=== PATIENT | female | born 1965 | race Caucasian/White ===

== ENCOUNTER → 2021-01-21 08:31 | Outpatient (BNVA) | payer MEDICAID, SELFPAY | PROVIDERS: Visit Provider Specialist | DX: G40.909 Epilepsy, unspecified, not intractable, without status epilepticus (principal); F17.200 Nicotine dependence, unspecified, uncomplicated | CPT/HCPCS: 99204; 99205 ==

== ENCOUNTER → 2021-02-09 13:17 | Outpatient (BNVA) | payer MEDICAID, SELFPAY | PROVIDERS: Visit Provider Specialist | DX: G40.909 Epilepsy, unspecified, not intractable, without status epilepticus (principal); F17.200 Nicotine dependence, unspecified, uncomplicated | CPT/HCPCS: 95816 ==

== ENCOUNTER 2021-02-11 14:58 | Outpatient (CLI) | payer MEDICAID, SELFPAY ==
--- NOTE | 2021-02-11 15:15 | MR_ITS ---
WS: [id number] MRI BRAIN WITHOUT CONTRAST HISTORY: R56.9 - Unspecified convulsions COMPARISON: None available. TECHNIQUE: Diffusion imaging, multiplanar T1, T2 and FLAIR imaging obtained. No evidence for acute infarct or hemorrhage. Salas-white matter differentiation is normal. Very mild scattered T2 and FLAIR signal hyperintensities in the periventricular and subcortical white matter distribution. Mild bilateral atrophy. No large territory infarct. Ventricles and extra-axial spaces are normal. Symmetric appearance to the hippocampal formations. No mesial temporal sclerosis. No cortical dysplasias are identified. No inferior displacement of cerebellar tonsils. The sella turcica and pituitary gland are unremarkabl e. Dural venous sinuses and cahto of Chow demonstrate no abnormality on this unenhanced studies. Paranasal sinuses: Clear. Mastoid air cells: Small amount of fluid LEFT mastoid air cells. Calvarium and scalp: Intact. MR/MR head wo con* [id number] IMPRESSION: 1. No acute infarct. 2. Symmetric appearance of the hippocampal formations. 3. Mild chronic small vessel ischemic type changes.
== END 2021-02-11 14:59 | disposition home or self-care (01) ==
LOC: RADSHAW 15:07
PROVIDERS: Visit Provider Specialist
DX: R56.9 Unspecified convulsions (principal)
CPT/HCPCS: 70551

== ENCOUNTER 2021-03-03 10:51 | Outpatient (CLI) | payer MEDICAID, SELFPAY ==
--- NOTE | 2021-03-03 11:04 | US_ITS ---
WS: [id number] INDICATION: Lump right axilla TECHNIQUE: Ultrasound area of concern right axilla. FINDINGS: Homogeneous well-circumscribed nodule right axilla measuring 1.0 x 0.9 x 0.7 cm with research program internship al echogenicity. This is superficial location. This most likely represents chronic inspissated sebace ous cyst. Lymph node is less likely. No internal vascularity. US/US soft tissue/extremity [id number] IMPRESSION: Homogeneous well-circumscribed nodule in the area of concern measur ing 1 cm superficial location. Differential considerations include inspissated chronic sebaceous cyst versus lymph node. Ultrasound-guided biopsy could be per formed in further evaluation.
== END 2021-03-03 10:52 | disposition home or self-care (01) ==
LOC: US 10:54
PROVIDERS: PCP Nurse Practitioner Family; Visit Provider Nurse Practitioner Family
DX: R22.31 Localized swelling, mass and lump, right upper limb (principal)
CPT/HCPCS: 76882

== ENCOUNTER → 2021-04-15 08:26 | Outpatient (BNVA) | payer MEDICAID, SELFPAY | PROVIDERS: PCP Nurse Practitioner Family; Visit Provider Specialist | DX: G40.909 Epilepsy, unspecified, not intractable, without status epilepticus (principal); F17.210 Nicotine dependence, cigarettes, uncomplicated | CPT/HCPCS: 99214 ==

== ENCOUNTER 2021-04-28 10:29 | Outpatient (CLI) | payer MEDICAID, SELFPAY ==
--- NOTE | 2021-04-28 10:33 | CT_ITS ---
WS: [id number] CT CHEST WITHOUT INTRAVENOUS CONTRAST HISTORY: CHRONIC OBSTRUCTIVE PULMONARY DISEASE TECHNIQUE: Contiguous 5 mm axial imaging performed on the thorax. Coronal and sagittal reformats are submitted. All CT scans at [facility] use at least one of these dose optimization techniques: automated exposure control; mA and/or kV adjustment per patient size (includes targeted exams where dose is matched to clinical indication); or iterative reconstruction. CONTRAST: None DLP: 724.81 mGy-cm. COMPARISON: None available. Lungs and central airway: Markedly abnormal appearance of the lungs. Lungs are heterogeneous with are as of mixed density. There are groundglass changes bilaterally and also more lucent areas throughout both lungs. There is a pleural-based irregular mass in the LEFT lower lobe extending over length of 4 .1 cm x 1.7 x 2.9 cm. Margins are irregular and there is adjacent pleural thickening. Pleura: Mild bilateral pleural thickening, greatest in the LEFT lower thorax. Heart and pericardium: Moderately enlarged heart chambers. No effusion. Mediastinum and giuseppe: There are a few small mediastinal and hilar lymph nodes. Some of these lymph no micaela maintain their fatty hilum. Periaortic lymph node measures 9 mm. Lymph nodes in the hilar regions would be difficult to evaluate without IV contrast. Vessels: Mildly dilated pulmonary artery. Mild atherosclerosis aorta. Chest wall and lower neck: No soft tissue masses. Upper abdomen: Prior cholecystectomy. 1.5 cm nodule associated with the LEFT adrenal gland with negat janeth Hounsfield units. Very mild thickening of the RIGHT adrenal gland. Visualized liver is normal. Osseous structures: Mild anterior wedging T6 by 20% without retropulsion. Mild sclerosis along the hartley perior endplate of T9 with a Schmorl's node. No retropulsion. CT/CT chest wo con [id number] IMPRESSION: 1. Irregular pleural-based soft tissue mass LEFT lower lobe measures 4.1 x 1.7 x 2.9 cm. Differential includes pneumonia, infarct and pulmonary neoplasm. Rec ommend short-term follow-up after treatment for possible pneumonia. Follow-up c hest CT in 3 weeks recommended. 2. Heterogeneous changes throughout both lungs. Probably related to emphysema with areas of air trapping and fibrosis. 3. LEFT adrenal adenoma. 4. Pulmonary hypertension. 5. Mild cardiomegaly.
== END 2021-04-28 10:30 | disposition home or self-care (01) ==
PROVIDERS: PCP Nurse Practitioner Family; Visit Provider Family Medicine
DX: J44.9 Chronic obstructive pulmonary disease, unspecified (principal); I51.7 Cardiomegaly; I27.20 Pulmonary hypertension, unspecified; D35.02 Benign neoplasm of left adrenal gland; R91.8 Other nonspecific abnormal finding of lung field
CPT/HCPCS: 71250

== ENCOUNTER → 2021-06-04 09:20 | Outpatient (BNVA) | payer MEDICAID, SELFPAY | PROVIDERS: PCP Nurse Practitioner Family; Visit Provider Family Medicine | DX: Z01.812 Encounter for preprocedural laboratory examination (principal) | CPT/HCPCS: 87635 ==

== ENCOUNTER 2021-06-10 09:49 | Outpatient (CLI) | payer MEDICAID, SELFPAY ==
--- NOTE | 2021-06-10 12:12 | PFTS_ITS ---
Date of Study:06/10/21 Date of Dictation: 06/12/21 MECHANICS: Postbronchodilator forced vital capacity (FVC) is reduced . Postbronchodilator forced expiratory volume in one second (FEV1) is severely reduced 46% FEV1/FVC is normal. There is no significant response to bronchodilators. FLOW VOLUME LOOP: normal. LUNG VOLUMES: Not measured DIFFUSING CAPACITY FOR CARBON MONOXIDE: Not measured . INTERPRETATION: The spirometry shows restrictive pattern. Lung volumes and gas transfer not measured. Clinical correlation recommended. [facility]
== END 2021-06-10 09:50 | disposition home or self-care (01) ==
LOC: RT 09:50
PROVIDERS: PCP Nurse Practitioner Family; Visit Provider Family Medicine
DX: J44.9 Chronic obstructive pulmonary disease, unspecified (principal)
CPT/HCPCS: 94060; J7611

== ENCOUNTER 2021-06-22 13:19 | Outpatient (CLI) | payer MEDICAID, SELFPAY ==
--- NOTE | 2021-06-22 | CT_ITS ---
WS: [id number] CT scan of the chest without IV contrast, additional two-dimensional coronal and sagittal reconstruct ion was performed. 06/22/2021 Clinical Data: ABNORMAL CHEST CT Comparison: CT chest, 04/28/2021 DLP: 786.[address] scans at [facility] use at least one of these dose optimization techniques: automated e xposure control; mA and/or kV adjustment per patient size (includes targeted exams where dose is matc hed to clinical indication); or iterative reconstruction. Findings: The 4.1 cm left lower lobe pleural-based mass is not changed in size or configuration. There is assoc iated left pleural thickening. The diffuse groundglass opacity throughout both lungs remains the same .. No effusions are seen. The heart size is enlarged with no pericardial effusion. No pneumothorax is se en. The trachea bifurcates normally into the bronchi. The pulmonary arterial system and thoracic aort a demonstrate no abnormalities or dilatations. There is no axillary or significant mediastinal adenop athy. The upper abdomen shows no change. CT/CT chest wo con [id number] Impression: 1. Pleural-based left lower lobe soft tissue mass unchanged. 2. No change in bilateral groundglass pulmonary opacities. 3. Differential diagnosis remains chronic pneumonia, pleural based carcinoma, c hronic inflammatory reaction and reaction to drugs or medication.
== END 2021-06-22 13:20 | disposition home or self-care (01) ==
PROVIDERS: PCP Nurse Practitioner Family; Visit Provider Nurse Practitioner Family
DX: R93.89 Abnormal findings on diagnostic imaging of other specified body structures (principal); J18.9 Pneumonia, unspecified organism
CPT/HCPCS: 71250

== ENCOUNTER 2021-12-21 20:00 | Outpatient (CLI) | payer MEDICAID, SELFPAY | END 2021-12-21 20:01 | disposition home or self-care (01) | LOC: SLEEP 12-22 06:39 | PROVIDERS: PCP Nurse Practitioner Family; Visit Provider Nurse Practitioner Family | DX: G47.33 Obstructive sleep apnea (adult) (pediatric) (principal) | CPT/HCPCS: 95810 ==

== ENCOUNTER → 2022-04-28 14:11 | Outpatient (BNVA) | payer MEDICAID, SELFPAY | PROVIDERS: PCP Family Medicine; Visit Provider Family Medicine | DX: R05.9 Cough, unspecified (principal); J44.1 Chronic obstructive pulmonary disease with (acute) exacerbation | CPT/HCPCS: 87426 ==

== ENCOUNTER 2022-05-17 06:52 | Outpatient (CLI) | payer MEDICAID, SELFPAY ==
--- NOTE | 2022-05-17 07:30 | CT_ITS ---
WS: [id number] CT CHEST WITHOUT INTRAVENOUS CONTRAST HISTORY: R91.8 - Other nonspecific abnormal finding of lung field TECHNIQUE: Contiguous 5 mm axial imaging performed on the thorax. Coronal and sagittal reformats are submitted. All CT scans at [facility] use at least one of these dose optimization techniques: automated exposure control; mA and/or kV adjustment per patient size (includes targeted exams where dose is matched to clinical indication); or iterative reconstruction. CONTRAST: None DLP: 579.83 mGy.cm COMPARISON: 06/22/2021, 04/28/2021. Prior PET/CT 07/18/2021 Lungs and central airway: Lung volumes are mildly reduced. Again noted is extensive groundglass opaci fication and increased heterogeneity with areas of lucent lung scattered throughout. Spiculated area of consolidation is again identified in the posterior LEFT lower lobe. Consolidation measures 2.8 x 2 .7 cm and abuts the pleura. There is adjacent pleural thickening and reaction. No effusion. No obviou s progression but also no improvement. This area was negative on a prior PET/CT. Pleura: Bilateral mild pleural thickening. Heart and pericardium: Mild cardiomegaly. Mediastinum and giuseppe: Numerous mediastinal and hilar lymph nodes are reidentified. Lymph nodes mainta in their normal fatty giuseppe and normal ovoid shape. Probably reactive. Limited visualization of the me diastinum for change without IV contrast. Vessels: Atherosclerosis aorta. Mild enlargement of the pulmonary artery. Chest wall and lower neck: 1.5 cm subcutaneous soft tissue mass anterior to the RIGHT shoulder is pro bably a sebaceous cyst. Upper abdomen: Prior cholecystectomy. Bilateral adrenal thickening and nodularity unchanged. Prominen t diaphragmatic slip at the RIGHT lateral surface of the liver similar to prior studies. Osseous structures: Mild increase in thoracic kyphosis. Mild anterior wedging of T6. CT/CT chest wo con [id number] IMPRESSION: 1. PET/CT negative spiculated pleural-based mass in the LEFT lower lobe has no t significantly changed. No significant progression or increase since 1. 2. Continued mosaic attenuation throughout both lungs with areas of air trappi ng. Differential and occludes asthma, bronchiolitis obliterans of hypersensitiv ity pneumonia and chronic PE. No change. 3. No obvious progression of disease.
== END 2022-05-17 06:53 | disposition home or self-care (01) ==
LOC: RAD 06:53
PROVIDERS: PCP Family Medicine; Visit Provider Family Medicine
DX: R91.8 Other nonspecific abnormal finding of lung field (principal)
CPT/HCPCS: 71250

== ENCOUNTER → 2022-08-31 12:27 | Outpatient (BNVA) | payer MEDICAID, SELFPAY | PROVIDERS: PCP Family Medicine; Visit Provider Family Medicine | DX: I10 Essential (primary) hypertension (principal); E78.2 Mixed hyperlipidemia; J44.9 Chronic obstructive pulmonary disease, unspecified; L02.91 Cutaneous abscess, unspecified; G47.00 Insomnia, unspecified; R32 Unspecified urinary incontinence | CPT/HCPCS: 80053; 80061; 84443; 85025 ==

== ENCOUNTER 2022-09-22 11:29 | Inpatient (IN) | payer MEDICAID, SELFPAY ==
[2022-09-22] VITALS (14 sets, daily range): BP systolic 99–119; BP diastolic 57–79; PULSE 61–85; RESP 16–23; TEMP 36.7–36.9; O2SAT 90–94; BMI 27.8
--- NOTE | 2022-09-22 11:36 | XR_ITS ---
WS: [id number] Exam: XR chest 1V portable [id number] Date/Time of Exam: 09/22/2022 11:42 AM Reason For Exam: dyspnea/cough No previous exams. Compared to chest CT scan performed 05/17/2022. Patchy groundglass infiltrates seen in the mid and lower lung zones bilaterally most likely represent chronic change as seen on the prior CT. There is also a small air collection between the parietal an d visceral pleura along the lower lobe of the right lung. A tiny pneumothorax is not excluded but thi s is probably a pleural-based emphysematous bleb also noted on prior CT. Pleural thickening at [facility] costophrenic angle. Heart size is top limits normal. The mediastinum is normal in contour. Ground glass densities in the upper lung zones likely chronic. Bony structures are intact. Recommendations: Serial follow-up chest radiographs suggested to detect any change. XR/XR chest 1V portable [id number] IMPRESSION: 1. Groundglass opacities seen throughout both lungs most likely chronic in natu re. 2. Small air collection between the parietal and visceral pleura of the right l ower lobe. Tiny pneumothorax is not excluded but this is more than likely a sma ll pleural-based emphysematous bleb which can be seen on prior CT scan of the c hest.
[2022-09-22 12:07] LABS: Basophils % 0.3 %; Eosinophils % 0.6 %; Hematocrit 31.1 % (37.0-47.0); Lymphocytes # 1.1 10^3/uL (0.8-4.8); Lymphocytes % 17.2 %; Mean Corpuscular HGB Conc 28.9 g/dL (30.0-36.0); Mean Corpuscular Volume 79.5 fl (81-99); Mean Platelet Volume 9.9 fL (7.4-10.4); Monocytes # 0.5 10^3/uL (0.2-0.9); Monocytes % 7.1 %; Neutrophils % 74.5 %; Nucleated Red Blood Cells % 0 %; Platelet Count 287 10^3/cmm (130-400); Red Blood Count 3.91 10^6/uL (4.1-5.3); Red Cell Distribution Width 21.7 % (12.1-15.1); White Blood Count 6.6 10^3/uL (4.0-10.0)
--- NOTE | 2022-09-22 12:14 | W.ED.SOB ---
HPI - SOB/Dyspnea General: Chief Complaint: Shortness of Breath/Dyspnea Stated Complaint: RESPIRATORY DISTRESS Time Seen by Provider: 09/22/22 11:35 Source: patient Mode of arrival: EMS History of Present Illness: HPI Narrative: 57-year-old female with history of seizure events to the emergency room via EMS with increasing productive cough with some blood-streaked sputum and increasing shortness of breath several neurogenic syncopal episodes recently. Patient was cyanotic at home with an O2 sat in the 70s on room air she normally wears 2 L by nasal cannula. She denies any chest pain. Despite being on chronic oxygen she continue to smoke regularly. MD elicited complaint: shortness of breath and cough Pertinent past history: COPD Onset (ago): day(s) Timing: constant and progressively worsening Severity: moderate Exacerbating factors: exertion and coughing Relieving factors: oxygen, rest and bronchodilators Known history of: COPD Associated symptoms: Reports chest congestion, cough and dizziness; Deny abdominal pain, chest pain, diaphoresis, extremity pain, fever(s), hemoptysis, lightheadedness, myalgias, nausea, orthopnea, palpitations, paresthesias, polydipsia, polyuria, rash, sense of impending doom, syncope or vomiting Treatment prior to arrival: oxygen and bronchodilator Review of Systems Const: Reports: fatigue and malaise; Denies: fever(s), chills or diaphoresis ENMT: Denies: throat pain, ear or mastoid pain, nasal discharge or nasal congestion Card: Denies: chest pain, palpitations, lightheadedness, syncope or orthopnea Resp: Reports: dyspnea, productive cough, wheezing and chest congestion; Denies: hemoptysis GI: Denies: abdominal pain, nausea or vomiting : Denies: flank pain, difficulty voiding, dysuria, urinary frequency or urinary urgency Musc: Denies: extremity pain or extremity swelling Skin/Breast: Denies: rash or pruritus Neuro: Reports: dizziness Endo: Denies: polyuria or polydipsia PFS ED PFSH: Medical History Abscess Allergic rhinitis Chronic obstructive pulmonary disease Cough Essential hypertension Hyperlipemia, mixed Insomnia PVT (portal vein thrombosis) Sleep apnea Urine incontinence Surgical History History of cholecystectomy History of tubal ligation Hx of breast reduction, elective Family History Grandmother CAD (coronary artery disease) Cancer Diabetes Mother Cancer Brother Cancer Sister Cancer Denies family history of Hypertension Stroke Social History Smoking and tobacco status: current every day smoker cigarettes Packs smoked per day: 0.5 Years cigarettes smoked: 50 Second hand smoke exposure: No Smoking risk assessment/counseling performed?: Yes Alcohol intake: former Year of sobriety/quit date alcohol: 30 y Desire information about alcohol rehabilitation?: No Counseling given: No Desire information about substance/drug rehabilitation?: No Counseling given: No Adopted: No Caregiver/support person: No Lives independently: No Household members: caregiver Housing: House Marital status: Number of children: 1 service: No Current occupational status: unemployed Pets and animals: No Current gender identity: Female Physical Exam Const: GENERAL APPEARANCE: cooperative and comfortable ORIENTATION/CONSCIOUSNESS: Yes awake, Yes oriented to person, Yes oriented to place and Yes oriented to time HENMT: COMMON NORMALS: normocephalic, atraumatic and hearing grossly normal bilaterally HEAD & SCALP: normocephalic and atraumatic Resp: EFFORT & INSPECTION: Yes tachypneic AUSCULTATION: rhonchi and wheezes Cardio: COMMON NORMALS: regular rate, regular rhythm and No murmurs present (Cardio) RATE: regular rate RHYTHM: regular rhythm GI: COMMON NORMALS: Soft to palpation and No hepatosplenomegaly present AUSCULTATION: Yes normoactive bowel sounds PALPATION: Yes Soft to palpation, No Tenderness to palpation present (GI), No Guarding due to palpation present (GI) and Yes No hepatosplenomegaly present Extremity: COMMON NORMALS: normal to inspection, capillary refill normal, no clubbing, cyanosis or edema, no calf tenderness and no pedal edema Neuro: SENSORIUM/ORIENTATION: Yes oriented to person, Yes oriented to place and Yes oriented to time Skin: COMMON NORMALS: no rashes or lesions noted GENERAL SKIN EXAM: no rashes or lesions noted Course Vital Signs: Vital signs: Vital Signs Temperature 98.4 F 09/22/22 11:33 Pulse Rate 81 09/22/22 14:30 Respiratory Rate 16 09/22/22 14:30 Blood Pressure 106/57 09/22/22 14:30 Pulse Oximetry 94 09/22/22 14:30 Oxygen Delivery Me thod 09/22/22 13:30 Oxygen Flow Rate 5 09/22/22 13:30 MDM - SOB/Dyspnea Medical Decision Making Patient has acute exacerbation of COPD with what appears to be a pneumonia as well as started on antibiotics. She has a left lower lung mass that is increased in size had previously been worked up as negative by PET scan. Radiology recommends to be reevaluated. Admit IV antibiotics ceftriaxone and Zithromax will also need steroids aggressive pulmonary toilet. Finally she is mildly anemic which will need to be watched closely. Discussed with hospitalist orders written Medical Records I reviewed the patient's medical records. Lab Data I reviewed the patient's lab results. 09/22/22 11:48 09/22/22 11:48 Labs/Radiology: Radiology Impressions Chest X-Ray 09/22/22 11:36 IMPRESSION: 1. Groundglass opacities seen throughout both lungs most likely chronic in nature. 2. Small air collection between the parietal and visceral pleura of the right lower lobe. Tiny pneumothorax is not excluded but this is more than likely a small pleural-based emphysematous bleb which can be seen on prior CT scan of the chest. Chest CTA 09/22/22 12:39 IMPRESSION: 1. No evidence of pulmonary embolus. 2. Diffuse hazy ground glass infiltrates throughout both lungs with mosaic attenuation with air trapping. This is unchanged from previous. 3. No pneumothorax. 4. Irregular LEFT lower lobe pleural-based opacity measuring 2.6 x 4.5 cm progressed slightly compared to previous. Consider interval follow-up with PET/CT. 5. New compression fracture L1 described above with loss of approximately 25-30% vertebral body height. Mild retropulsion with narrowing of the LEFT subarticular recess. 6. New mild compression superior endplate T4 with sclerosis Attempted notification Barry Bautista DO at 09/22/2022 1:59 PM. Laboratory Results WBC 6.6 10^3/uL (4.0-10.0) 09/22/22 11:48 RBC 3.91 10^6/uL (4.1-5.3) L 09/22/22 11:48 Hgb 9.0 g/dL (11.5-15.3) L 09/22/22 11:48 Hct 31.1 % (37.0-47.0) L 09/22/22 11:48 MCV 79.5 fl (81-99) L 09/22/22 11:48 MCH 23.0 pg (28.0-34.0) L 09/22/22 11:48 MCHC 28.9 g/dL (30.0-36.0) L 09/22/22 11:48 RDW 21.7 % (12.1-15.1) H 09/22/22 11:48 Plt Count 287 10^3/cmm (130-400) 09/22/22 11:48 MPV 9.9 fL (7.4-10.4) 09/22/22 11:48 Neut % (Auto) 74.5 % 09/22/22 11:48 Lymph % (Auto) 17.2 % 09/22/22 11:48 [place] % (Auto) 7.1 % 09/22/22 11:48 Eos % (Auto) 0.6 % 09/22/22 11:48 Baso % (Auto) 0.3 % 09/22/22 11:48 Neut # (Auto) 4.90 10^3/uL (1.8-7.7) 09/22/22 11:48 Lymph # (Auto) 1.1 10^3/uL (0.8-4.8) 09/22/22 11:48 [place] # (Auto) 0.5 10^3/uL (0.2-0.9) 09/22/22 11:48 Eos # (Auto) 0.0 10^3/uL (0.0-0.8) 09/22/22 11:48 Baso # (Auto) 0.0 10^3/uL (0.0-0.1) 09/22/22 11:48 Nucleated RBC % (auto) 0 % 09/22/22 11:48 Nucleated RBCs # 0.0 /100WBC 09/22/22 11:48 Specimen Type Arterial 09/22/22 12:30 Sample Site Radial, left 09/22/22 12:30 ABG pH 7.39 (7.35-7.45) 09/22/22 12:30 ABG pCO2 36.2 mmHg (35-45) 09/22/22 12:30 ABG pO2 56.0 mmHg (80.0-100.0) L 09/22/22 12:30 ABG HCO3 21.7 mmol/L (22-26) L 09/22/22 12:30 ABG O2 Saturation 89.1 09/22/22 12:30 ABG Base Excess -3.0 mmol/L (-2.0-2.0) L 09/22/22 12:30 Jarett Test Pos 09/22/22 12:30 A-a O2 Gradient 6.5 mmHg (5-10) 09/22/22 12:30 Hematocrit 28.0 % (37-47) L 09/22/22 12:30 Hgb O2 Saturation 84.3 % (95-100) L 09/22/22 12:30 Carboxyhemoglobin 4.7 %THgb (0.4-20.1) 09/22/22 12:30 Methemoglobin 0.7 % (0.4-1.5) 09/22/22 12:30 Total Hemoglobin 9.1 g/dL (12-16) L 09/22/22 12:30 Sodium 135.0 mmol/L (131-143) 09/22/22 12:30 Potassium 4.4 mmol/L (3.5-5.0) 09/22/22 12:30 Glucose 115.0 mg/dL (70-115) 09/22/22 12:30 Ionized Calcium 1.2 mmol/L (1.1-1.4) 09/22/22 12:30 O2 Delivery Device Nc 09/22/22 12:30 O2 Liters/Min 5.0 % 09/22/22 12:30 Carpet Installer Helper ID [place] 09/22/22 12:30 Sodium 136 mmol/L (136-145) 09/22/22 11:48 Potassium 4.9 mmol/L (3.5-5.1) 09/22/22 11:48 Chloride 105 mmol/L (98-107) 09/22/22 11:48 Carbon Dioxide 21 mmol/L (22-29) L 09/22/22 11:48 Anion Gap 14.9 (5-19) 09/22/22 11:48 BUN 15 mg/dL (6-20) 09/22/22 11:48 Creatinine 1.4 mg/dL (0.5-0.9) H 09/22/22 11:48 GFR Calculation 38.5 mL/min (90-130) L 09/22/22 11:48 Glucose 95 mg/dL (65-115) 09/22/22 11:48 Calculated Osmolality 283 mOsm/kg (285-295) L 09/22/22 11:48 Lactic Acid 1.7 mmol/L (0.5-2.2) 09/22/22 12:40 Calcium 8.2 mg/dL (8.5-10.5) L 09/22/22 11:48 Total Bilirubin 0.5 mg/dL (0.15-1.2) 09/22/22 11:48 AST 13 U/L (0-32) 09/22/22 11:48 ALT 8 U/L (0-33) 09/22/22 11:48 Alkaline Phosphatase 86 U/L (35-105) 09/22/22 11:48 Troponin T Baseline 17 ng/L (0-10) H 09/22/22 11:48 Troponin T 120 Minute 14.00 ng/L (0-10) H 09/22/22 14:02 Delta Troponin T -3.00 ABS# (0-10) L 09/22/22 14:02 NT-Pro-B Natriuret Pep 03674 pg/mL (0-125) H 09/22/22 12:40 Total Protein 6.5 g/dL (6.6-8.7) L 09/22/22 11:48 Albumin 3.1 g/dL (3.5-5.2) L 09/22/22 11:48 Globulin 3.4 g/dL (1.3-4.6) 09/22/22 11:48 Urine Color Yellow (Yellow) 09/22/22 14:37 Urine Appearance Clear (CLEAR) 09/22/22 14:37 Urine pH 5 (5-7) 09/22/22 14:37 Ur Specific Evans 1.015 (1.005-1.030) 09/22/22 14:37 Urine Protein Neg (Negative) 09/22/22 14:37 Urine Glucose (UA) Norm (Normal) 09/22/22 14:37 Urine Ketones Negative (Negative) 09/22/22 14:37 Urine Blood Neg (Negative) 09/22/22 14:37 Urine Nitrate Negative (Negative) 09/22/22 14:37 Urine Bilirubin Neg (Negative) 09/22/22 14:37 Urine Urobilinogen 1 mg/dL (Negative) H 09/22/22 14:37 Ur Leukocyte Esterase Negative (Negative) 09/22/22 14:37 Discharge Plan Discharge Patient Disposition: Admitted As Inpatient Admit Provider: Natalia Farrell Clinical Impression: Pneumonia, COPD exacerbation, Syncope, Lung mass Condition: Stable Coding Level of Care Code ED Automatic 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
--- NOTE | 2022-09-22 12:26 | ECG_ITS ---
[facility] Test Date: 2022-09-22 Pat Name: Asia Porras Department: Room: Gender: Female Hris Specialist: : [id number] Requested By: Barry Dumont Order Number: [id number] Shaun MD: Porfirio Gay M.D. Measurements Intervals [place] Rate: 66 P: 30 TX: 186 QRS: 43 QRSD: 78 T: -38 QT: 430 QTc: 452 Interpretive Statements SINUS RHYTHM INDETERMINATE AXIS PATTERN CONSISTENT WITH PULMONARY DISEASE ST DEVIATION AND MODERATE T-WAVE ABNORMALITY, CONSIDER ANTEROLATERAL ISCHEMIA [-0.1+ mV T-WAVE IN V3-V6] ST DEVIATION AND MODERATE T-WAVE ABNORMALITY, CONSIDER INFERIOR ISCHEMIA [-0.1+ mV T-WAVE IN II/aVF] No previous ECG available for comparison Electronically Signed On 09-22-2022 23:53:28 CDT by Porfirio Gay M.D. [email or web address]
--- NOTE | 2022-09-22 12:26 | PC.NURSE ---
PT PLACED ON CONTINUOUS NIBP, SPO2, AND CM
[2022-09-22] MEDS: sodium chloride 0.9% 1,000 ML 999 ML IV (12:27)
[2022-09-22 12:36] LABS: Troponin(5th) Baseline 17 ng/L (0-10)
[2022-09-22 12:39] LABS: Alanine Aminotransferase 8 U/L (0-33); Albumin Level 3.1 g/dL (3.5-5.2); Alkaline Phosphatase 86 U/L (35-105); Anion Gap 14.9 (5-19); Aspartate Amino Transferase 13 U/L (0-32); Blood Urea Nitrogen 15 mg/dL (6-20); Calcium 8.2 mg/dL (8.5-10.5); Carbon Dioxide 21 mmol/L (22-29); Chloride 105 mmol/L (98-107); Globulin 3.4 g/dL (1.3-4.6); Glomerular Filtration Rate 38.5 mL/min (90-130); Glucose 95 mg/dL (65-115); Osmolality Calculated 283 mOsm/kg (285-295); Potassium 4.9 mmol/L (3.5-5.1); Sodium 136 mmol/L (136-145); Total Bilirubin 0.5 mg/dL (0.15-1.2); Total Protein 6.5 g/dL (6.6-8.7)
--- NOTE | 2022-09-22 12:39 | CT_ITS ---
WS: [id number] CTA OF THE CHEST WITH PULMONARY EMBOLISM PROTOCOL TECHNIQUE: High-resolution contrast enhanced CTA of the chest with coronal and sagittal reformatted i mages with pulmonary embolism protocol. MIP images are also reviewed. CLINICAL INFORMATION: small pneumothorax, infitrates COMPARISON: May 17, 2022 DLP: 378.[address] scans at [facility] use at least one of these dose optimization techniques: automated e xposure control; mA and/or kV adjustment per patient size (includes targeted exams where dose is matc hed to clinical indication); or iterative reconstruction. FINDINGS: No pneumothorax. Bilateral diffuse groundglass infiltrates throughout both lungs with mosaic attenuat ion. Area of irregular pleural-based consolidation LEFT lower lobe measuring 6.0 x 2.8 cm. Reactive A P window anterior mediastinal peribronchial lymph nodes. Normal caliber thoracic aorta. Normal calibe r descending thoracic aorta. Small bilateral adrenal adenomas. Cholecystectomy clips. Celiac and SMA are patent in the upper abdomen. Small esophageal hiatal hernia. No axillary lymphadenopathy. Proximal main pulmonary arteries are normal. Normal segmental and subseg mental pulmonary arteries. No evidence of pulmonary embolus. Mild thoracic curve. Mild thoracic kypho sis. Prior cholecystectomy. New compression fracture superior endplate L1 with mild retropulsion posterior superior cortex. This is new since May 17, 2022. Slight effacement of ventral thecal sac. Loss of approximately 25-30% vertebral body height. Chronic compression T9 and T6 are unchanged in appearance. New mild compressi on superior endplate T4 with sclerosis CT/CT angio chest PE protcl [id number] IMPRESSION: 1. No evidence of pulmonary embolus. 2. Diffuse hazy ground glass infiltrates throughout both lungs with mosaic att enuation with air trapping. This is unchanged from previous. 3. No pneumothorax. 4. Irregular LEFT lower lobe pleural-based opacity measuring 2.6 x 4.5 cm prog ressed slightly compared to previous. Consider interval follow-up with PET/CT. 5. New compression fracture L1 described above with loss of approximately 25-3 0% vertebral body height. Mild retropulsion with narrowing of the LEFT subartic ular recess. 6. New mild compression superior endplate T4 with sclerosis Attempted notification Barry Bautista DO at 09/22/2022 1:59 PM.
[2022-09-22 12:41] LABS: ABG PCO2 36.2 mmHg (35-45); ABG PH Result 7.39 (7.35-7.45); Alveolar-Arterial Oxygen Gradi 6.5 mmHg (5-10); Blood Gas Allen Test Pos; Blood Gas Operator Identificat WALCI; Blood Gas Sample Site Radial, left; Blood Gas Sample Type Arterial; Carboxyhemoglobin 4.7 %THgb (0.4-20.1); HCO3 ABG 21.7 mmol/L (22-26); HGB O2 Sat 84.3 % (95-100); Ionized Calcium Level - ABG 1.2 mmol/L (1.1-1.4); Methemoglobin 0.7 % (0.4-1.5); Oxygen Device NC; Oxygen Saturation ABG 89.1; Potassium Level - ABG 4.4 mmol/L (3.5-5.0); Total Hemoglobin 9.1 g/dL (12-16)
[2022-09-22] MEDS: ipratropium-albuterol 3 mL Neb INHALATION (12:45)
[2022-09-22] MEDS: diphenhydrAMINE 50 mg/mL SDV 1mL IVP (12:52)
--- NOTE | 2022-09-22 12:56 | PC.NURSE ---
HOLDING ANTIBIOTICS UNTIL BLOOD CULTURES OBTAINED AND CT DONE.
[2022-09-22] MEDS: iohexol 350 mg/mL 500 mL Btl (per mL) IV (13:11)
[2022-09-22] MEDS: cefTRIAXone 1,000 MG in sodium chloride 0.9% (plus) 50 ML 100 MG IV (13:21)
[2022-09-22 13:29] LABS: Lactic Sepsis W/Reflex 1.7 mmol/L (0.5-2.2)
[2022-09-22 13:38] LABS: NT Pro B Type Natriuretic Pept 10444 pg/mL (0-125)
[2022-09-22] MEDS: azithromycin 500 MG in sodium chloride 0.9% 250 ML 250 MG IV (13:46)
[2022-09-22 14:51] LABS: Add Urine Microscopic? NO; Charge for UA Resulting for Rev
[2022-09-22 14:54] LABS: Bilirubin Urine Neg (Negative); Blood Urine Neg (Negative); Glucose Urine UA Norm (Normal); Ketones Urine Negative (Negative); Leukocyte Esterase Urine Negative (Negative); Nitrate Urine Negative (Negative); Protein Urine Neg (Negative); Specific Gravity, Urine 1.015 (1.005-1.030); Urine Appearance Clear (CLEAR); Urine Color Yellow (Yellow); Urobilinogen Urine 1 mg/dL (Negative); pH Urine 5 (5-7)
--- NOTE | 2022-09-22 14:55 | ECG_ITS ---
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 Measurements Intervals [place] Rate: 76 P: 57 DC: 183 QRS: 95 QRSD: 88 T: -41 QT: 444 QTc: 501 Interpretive Statements SINUS RHYTHM BORDERLINE RIGHT AXIS DEVIATION [QRS AXIS > 90] PATTERN CONSISTENT WITH PULMONARY DISEASE ST DEVIATION AND MARKED T-WAVE ABNORMALITY, CONSIDER ANTEROLATERAL ISCHEMIA [-0.5+ mV T-WAVE IN I/aVL/V3-V6] ST DEVIATION AND MODERATE T-WAVE ABNORMALITY, CONSIDER INFERIOR ISCHEMIA [-0.1+ mV T-WAVE IN II/aVF] Compared to ECG 09/22/2022 12:26:49 Indeterminate axis no longer present T-wave abnormality still present Possible ischemia still present Electronically Signed On 09-23-2022 0:00:34 CDT by Porfirio Gay M.D. [email or web address].[employer] [facility].[employer]/store/[id number]
--- NOTE | 2022-09-22 15:22 | PM.HP ---
Providers/Chief Complaint Admitting Physician: Natalia Farrell MD Primary Care Provider: Susan Sanabria MD Chief Complaint: RESPIRATORY DISTRESS History of Present Illness Asia Porras is a 57 year old female who carries history of lung cancer, patient has opted not to get treatment for her lung cancer, patient is stating that she does not use oxygen at all at home, presented with chief complaint of recurrent syncopal events. Patient is stating that since last Tuesday she has experienced syncopal event at least 3-4 times and her last event was this morning that prompted her visit to the ER. She is living with her niece who is 40 years old, she is not willing to go for radio or medical therapy for her cancer, she has not experienced any chest pain, fever, diarrhea nausea or vomiting. She is describing a syncopal events every time she tries to get up she gets dizzy and falls. Clinically she is dry She has been started on IV fluids Hemodynamically stable Requested orthostatics Troponin without significant delta BNP is high Vitamin B12 is low as well She does not carry any signs of cauda equina TSH normal CT showing multiple compression fractures Worsening of left lower lobe opacity Review of Systems Const: Denies: fever(s) Eyes: Denies: change in vision ENMT: Denies: throat pain Card: Denies: chest pain Resp: Reports: dyspnea GI: Denies: abdominal pain : Denies: flank pain Musc: Denies: neck pain Skin/Breast: Denies: rash Neuro: Denies: headache(s) Psych: Reports: anxiety Endo: Denies: polyuria Medications/Allergies Home Medications Medication Instructions Recorded Confirmed Last Taken Type budesonide-formoterol HFA 160 2 puff inhalation BID #10.2 grams 08/31/22 09/22/22 Unknown Rx mcg-4.5 mcg/actuation aerosol inhaler (Symbicort) mupirocin 2 % topical ointment 1 applic topical BID #22 grams 08/31/22 09/22/22 Unknown Rx oxybutynin chloride 10 mg 10 mg PO DAILY #30 tabs 08/31/22 09/22/22 09/21/22 Rx tablet,extended release 24 hr tizanidine 2 mg tablet See Rx Instructions .Route 08/31/22 09/22/22 09/22/22 Rx .COMPLEX #90 tabs albuterol sulfate 90 mcg/actuation 2 puff inhalation Q6H PRN 09/22/22 09/22/22 Unknown History aerosol inhaler shortness of breath or wheezing atenolol 50 mg tablet 50 mg PO QAM 09/22/22 09/22/22 09/22/22 History citalopram 20 mg tablet 20 mg PO DAILY 09/22/22 09/22/22 09/21/22 History eszopiclone 3 mg tablet 3 mg PO BEDTIME 09/22/22 09/22/22 09/21/22 History gabapentin 300 mg capsule 300 mg PO TID 09/22/22 09/22/22 09/22/22 History montelukast 10 mg tablet 10 mg PO QPM 09/22/22 09/22/22 09/21/22 History nitroglycerin 0.4 mg sublingual 0.4 mg sublingual Q5M PRN Chest 09/22/22 09/22/22 Unknown History tablet (Nitrostat) Pain pravastatin 80 mg tablet 80 mg PO BEDTIME 09/22/22 09/22/22 09/21/22 History rivaroxaban 20 mg tablet (Xarelto) 20 mg PO QPM 09/22/22 09/22/22 09/21/22 History Allergies Allergy/AdvReac Type Severity Reaction Status Date / Time Sulfa (Sulfonamide Allergy Mild Unknown Verified 09/22/22 12:00 Antibiotics) Iodinated Contrast Media Allergy ADR-Itching Verified 09/22/22 12:00 PFSH Acute PFSH: Medical History Abscess Allergic rhinitis Chronic obstructive pulmonary disease Cough Essential hypertension Hyperlipemia, mixed Insomnia PVT (portal vein thrombosis) Sleep apnea Urine incontinence Surgical History History of cholecystectomy History of tubal ligation Hx of breast reduction, elective Family History Grandmother CAD (coronary artery disease) Cancer Diabetes Mother Cancer Brother Cancer Sister Cancer Denies family history of Hypertension Stroke Social History Smoking and tobacco status: current every day smoker cigarettes Packs smoked per day: 0.5 Years cigarettes smoked: 50 Second hand smoke exposure: No Smoking risk assessment/counseling performed?: Yes Alcohol intake: former Year of sobriety/quit date alcohol: 30 y Desire information about alcohol rehabilitation?: No Counseling given: No Desire information about substance/drug rehabilitation?: No Counseling given: No Adopted: No Caregiver/support person: No Lives independently: No Household members: caregiver Housing: House Marital status: Number of children: 1 service: No Current occupational status: unemployed Pets and animals: No Current gender identity: Female Vitals/I&O/Wt Last Vital Signs Temp 98.4 F 09/22/22 11:33 Pulse 81 09/22/22 14:30 Resp 16 09/22/22 14:30 BP 106/57 09/22/22 14:30 Pulse Ox 94 09/22/22 14:30 O2 Del Method 09/22/22 13:30 O2 Flow Rate 5 09/22/22 13:30 Weight last 48 hrs Weight 68.946 kg Physical Exam Narrative: Patient is clinically dry Currently on 5 L Hemodynamically stable No active distress No chest pain Awake and alert GCS 15 S1, S2 Abdomen soft Data 09/22/22 11:48 09/22/22 11:48 Micro: Microbiology 09/22/22 12:46 Blood Culture - Preliminary Blood SPECIMEN COLLECTED 09/22/22 12:40 Blood Culture - Preliminary Blood SPECIMEN COLLECTED A&P Assessment and plan (1) Smoking: (2) Lung mass: (3) COPD exacerbation: (4) Syncope: Plan Recurrent syncopal events Request echo Start IV fluids for clinical signs of dehydration For lung mass she does not want to go for any chemo or radiotherapy Patient is stating in case of further worsening she might opt for comfort care at home she just want to stay at home and does not want to get IV treatments She is agreeable for echo and IV fluid hydration She does not carry any signs of cauda equina she does not have any urine incontinence or lack of sensory innervations of her legs Multiple compression fractures, L1, T4, T9, T6 No signs of PE Groundglass opacities with worsening of dimensions Opioids for pain management Currently she is on 5 L She is in sinus rhythm DNR/DNI IV fluid overnight DVT prophylaxis on board, Attestations Medical Necessity Statement*: Anticipating discharge within 48 hours Diagnoses Smoking F17.200 Lung mass R91.8 COPD exacerbation J44.1 Syncope R55
--- NOTE | 2022-09-22 17:08 | ECG_ITS ---
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 Measurements Intervals [place] Rate: 71 P: 59 AK: 185 QRS: 91 QRSD: 88 T: -44 QT: 436 QTc: 474 Interpretive Statements SINUS RHYTHM BORDERLINE RIGHT AXIS DEVIATION [QRS AXIS > 90] PATTERN CONSISTENT WITH PULMONARY DISEASE ST DEVIATION AND MARKED T-WAVE ABNORMALITY, CONSIDER ANTEROLATERAL ISCHEMIA [-0.5+ mV T-WAVE IN I/aVL/V3-V6] ST DEVIATION AND MODERATE T-WAVE ABNORMALITY, CONSIDER INFERIOR ISCHEMIA [-0.1+ mV T-WAVE IN II/aVF] Compared to ECG 09/22/2022 14:55:39 No significant changes Electronically Signed On 09-23-2022 18:48:52 CDT by Ian Vega M.D. [email or web address]/[id number]
[2022-09-22 17:38] LABS: Thyroid Stimulating Hormone 1.51 uIU/mL (0.27-4.20); Vitamin B12 206 pg/mL (232-1245)
[2022-09-22] MEDS: rivaroxaban 10 mg Tablet 20 MG PO (18:13)
[2022-09-22] MEDS: levoFLOXacin 750 mg Tablet PO (18:13)
[2022-09-22] MEDS: montelukast sodium 10 mg Tablet PO (18:13)
[2022-09-22 18:21] LABS: Troponin 5 6HR 10.66 ng/L (0-10)
[2022-09-22 18:29] LABS: Troponin 5 6HR Delta -6.34 ng/L (0-12)
--- NOTE | 2022-09-22 19:16 | USCV_ITS ---
Asia Porras Age: 57 Gender: F : 1965 Exam Date: 09/22/2022 21:27 Ordering Phys: aNtalia Farrell MD Technologist: RICKY [place] [facility] [place]ication: syncope, COPD, SOB, long-term smoker, O2 dependent, continues smoking. No history of cardiac intervention per patient BP: 106 / 58 HR: 74 Rhythm: Sinus Technical Quality: Adequate MEASUREMENTS (Male / Female) Normal Values 2D ECHO LV Diastolic Diameter PLAX 3.6 cm 4.2 - 5.9 / 3.9 - 5.3 cm LV Systolic Diameter PLAX 2.2 cm IVS Diastolic Thickness 1.7 cm 0.6 - 1.0 / 0.6 - 0.9 cm IVS Systolic Thickness 2.1 cm LVPW Diastolic Thickness 1.6 cm 0.6 - 1.0 / 0.6 - 0.9 cm LVPW Systolic Thickness 1.7 cm LVOT Diameter 1.6 cm LV Ejection Fraction 2D Teich 71.0 % LV Ejection Fraction MOD 2C 67.0 % LV Ejection Fraction 2C AL 68.9 % LA Diameter 4.4 cm LA Width 3.0 cm LA Height 4.5 cm RA Width 3.6 cm RA Height 4.4 cm Aorta at Sinotubular Diameter 2.8 cm IVC Diameter 1.5 cm M-MODE Aortic Annulus Diameter 3.1 cm LA Ao Ratio MM 1.5 MV E Point Septal Separation 0.0 cm DOPPLER AV Peak Velocity 145.0 cm/s LVOT Peak Velocity 131.0 cm/s AV Area Cont Eq vti 1.9 cm squared AV Area Cont Eq pk 1.8 cm squared MV Peak Velocity 130.0 cm/s MV Area PHT 4.6 cm squared Mitral E to A Ratio 0.7 MV E' Velocity 49.0 cm/s Mitral E to MV E' Ratio 5.5 Mitral E to LV E' Lateral Ratio 6.1 Mitral E to LV E' Septal Ratio 5.1 TR Peak Velocity 270.0 cm/s TR Peak Gradient 29.2 mmHg TV Peak E Velocity 65.0 cm/s Right Atrial Pressure 5.0 mmHg Pulmonary Artery Systolic Pressu 34.2 mmHg PV Peak Velocity 97.0 cm/s RV Acceleration Time 0.1 s RV Ejection Time 0.4 s RV AcT/ET 0.2 FINDINGS Left Ventricle Left ventricle is normal in size. LV systolic function is normal with EF of 60 to 65%. No regional wall motion abnormalities are seen. Grade 1 diastolic dysfunction Right Ventricle Normal in size and function Right Atrium Normal in size Left Atrium Normal in size Mitral Valve Structurally normal mitral valve.No significant stenosis or regurgitation. Aortic Valve Structurally normal aortic valve. No significant stenosis or regurgitation. Tricuspid Valve Trace tricuspid regurgitation. Insufficient TR jet to calculate RVSP Pulmonic Valve Not well visualized Pericardium Not well visualized Aorta Normal in size IVC Appears to be normal CONCLUSIONS LV systolic function is normal with EF of 60 to 60% Grade 1 diastolic dysfunction Trace tricuspid regurgitation No comparison studies are available Ian Vega MD (Electronically Signed) Final Date: 23 September 2022 17:51 S
[2022-09-22] MEDS: sodium chloride 0.9% 1,000 ML 75 ML IV (19:27)
[2022-09-22] MEDS: gabapentin 300 mg Capsule PO (20:32)
[2022-09-22] MEDS: atorvastatin 40 mg Tablet 20 MG PO (20:32)
[2022-09-22] MEDS: tizanidine 4 mg Tablet PO (20:32)
[2022-09-23] VITALS (11 sets, daily range): BP systolic 96–142; BP diastolic 5–72; PULSE 46–85; RESP 15–18; TEMP 36.3–36.7; O2SAT 92–99
[2022-09-23 05:28] LABS: Anion Gap 10.6 (5-19); Blood Urea Nitrogen 18 mg/dL (6-20); Calcium 8.2 mg/dL (8.5-10.5); Carbon Dioxide 22 mmol/L (22-29); Chloride 107 mmol/L (98-107); Glomerular Filtration Rate 56.7 mL/min (90-130); Glucose 159 mg/dL (65-115); Magnesium 2.3 mg/dL (1.7-2.3); Osmolality Calculated 283 mOsm/kg (285-295); Phosphorus 3.5 mg/dL (2.5-4.5); Potassium 5.6 mmol/L (3.5-5.1); Sodium 134 mmol/L (136-145)
[2022-09-23] MEDS: tizanidine 4 mg Tablet PO ×2 (08:18→20:49)
[2022-09-23] MEDS: citalopram 20 mg Tablet PO (08:18)
[2022-09-23] MEDS: gabapentin 300 mg Capsule PO ×3 (08:18→20:49)
[2022-09-23] MEDS: sodium polystyrene sulfonate 15 gm/60 mL Btl PO (08:19)
[2022-09-23] MEDS: sodium chloride 0.9% 1,000 ML 75 ML IV ×2 (08:19→22:21)
--- NOTE | 2022-09-23 08:48 | ECG_ITS ---
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 Measurements Intervals [place] Rate: 52 P: 35 NM: 170 QRS: 73 QRSD: 84 T: -7 QT: 506 QTc: 473 Interpretive Statements SINUS BRADYCARDIA ST DEVIATION AND MARKED T-WAVE ABNORMALITY, CONSIDER ANTEROLATERAL ISCHEMIA [-0.5+ mV T-WAVE IN I/aVL/V3-V6] Compared to ECG 09/22/2022 17:08:44 Sinus rhythm no longer present T-wave abnormality still present Possible ischemia still present Electronically Signed On 09-23-2022 18:47:15 CDT by Ian Vega M.D. [id number]
--- NOTE | 2022-09-23 09:30 | PM.PN ---
Subjective Subjective: Heart rate below 45 asymptomatic Orthostatic positive Currently on IV fluids No overnight events Requested echo Another set of vitals today Sinus bradycardia with T wave inversions Vitals/I&O/Wt Last Vital Signs Temp 98.0 F 09/23/22 06:00 Pulse 60 09/23/22 07:45 Resp 17 09/23/22 06:00 BP 106/59 09/23/22 06:00 Pulse Ox 98 09/23/22 07:45 O2 Del Method 09/23/22 07:45 O2 Flow Rate 5 09/23/22 08:20 09/22/22 09/23/22 09/23/22 22:59 06:59 14:59 Intake Total 1300 / 1300 965 / 965 Balance 1300 / 1300 965 / 965 Weight last 48 hrs Weight 70.579 kg Weight 68.946 kg Physical Exam Narrative: Patient is using 5 L nasal cannula Some dried blood around left nostril Hemodynamically stable Awake and alert Clinical signs of dehydration Mild crackles noted on lung auscultation Abdomen soft Pleasant and cooperative S1, S2 Data 09/22/22 11:48 09/23/22 04:46 Micro: Microbiology 09/22/22 12:46 Blood Culture - Preliminary Blood SPECIMEN COLLECTED 09/22/22 12:40 Blood Culture - Preliminary Blood SPECIMEN COLLECTED A&P Assessment and plan (1) Pneumonia: (2) Syncope: (3) COPD exacerbation: (4) Lung mass: (5) Smoking: (6) Sinus bradycardia: Plan Syncopal event at home Orthostatic positive Continue with fluids Bradycardia noted she has moderate sleep apnea she has not been using CPAP at home Asymptomatic for now Redo orthostatic vitals EKG showing sinus bradycardia T wave inversion We will do cardiac stress test tomorrow Sinus bradycardia: Discontinue atenolol Echo is pending A-fib without RVR Currently showing sinus bradycardia, atenolol discontinued for bradycardia Continue Xarelto Lung mass patient does not want to pursue any kind of investigation including histopathological She does not want any chemoradiotherapy In case of further worsening patient is stating that she would like to go home and stay with her daughter I would like to monitor her 1 more day with IV fluids Requesting stress test tomorrow because of T wave versions noted on the EKG, chest pain-free, negative delta troponin DNR/DNI Hyperkalemia: Given Kayexalate We discussed the importance of histopathological diagnosis to know the prognosis however patient is stating she would like to discuss with her mom and daughter She is adamant that she does not want to pursue any kind of treatment yet Self interpretation of EKG, sinus bradycardia, incomplete right bundle branch block, Attestations Medical Necessity Statement*: Continue medical management Diagnoses Pneumonia J18.9 Syncope R55 COPD exacerbation J44.1 Lung mass R91.8 Smoking F17.200 Sinus bradycardia R00.1
--- NOTE | 2022-09-23 10:25 | PC.CHAP ---
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 [] Patient/Family/Request visit [] Outpatient visit [] Follow-up visit [] Physician referral [] Code/Alert [x] Routine visit [] Staff referral [] Actively dying [] Patient sleeping [] Family support [] [] Out of room [] Palliative care [x] [x] Receiving care in room [] Pre-surgical visit [] Trauma [] Long length of stay [] ICU visit [] Other: Relational/Emotional Strength [x] Patient feels connected with others/family/visitors/staff [] Distress [] Loneliness/isolation [] Abandonment Spirituality of Patient [x] Person of Malorie [] Attends Sikh of their Malorie [x] Believes in Prayer [] Reads Bible or Bahai materials [] There are Spiritual issues to be addressed Shortage Worker Interventions [x] Prayer [x] Active listening [x] Non-anxious presence [x] Spiritual/emotional support [] Crisis/trauma care [x] Spiritual counseling [] Bereavement support [] Provided bereavement packet [] Provided Bible/devotional materials [] Provided toy/stuffed animal, coloring book to patient or family member [] Provided Communion [] Anointing/[place] [] Salvation [x] Completed spiritual assessment [] Other: Impact on Illness or Injury [] Angry [] Fearful [x] Anxious [] Often cries [] Exhaustion [x] Unable to work [] Unable to attend zoroastrianism [] Unable to walk/stand [] Unable to read [] Unable to drive [] Unable to eat/drink [] Unable to sleep [] Unable to be with family [] Patient intubated [] Other: Summary senior has cancer she will go home with family end of life at some point possitve decision on life Time spent with patient 10 mins
--- NOTE | 2022-09-23 12:02 | PC.PHAR ---
Due to patient's improving renal function and per hospital policy, the Levaquin dose was increased to q24h. Will continue to monitor the patient. Please let us know if there is anything else that we can help with. Thanks, Flaquito Ramirez, Pharm.D
[2022-09-23] MEDS: ipratropium-albuterol 3 mL Neb INHALATION (15:12)
[2022-09-23] MEDS: rivaroxaban 10 mg Tablet 20 MG PO (17:48)
[2022-09-23] MEDS: levoFLOXacin 750 mg Tablet PO (17:48)
[2022-09-23] MEDS: montelukast sodium 10 mg Tablet PO (17:48)
[2022-09-23] MEDS: atorvastatin 40 mg Tablet 20 MG PO (20:48)
[2022-09-24] VITALS (7 sets, daily range): BP systolic 108–125; BP diastolic 47–75; PULSE 43–68; RESP 14–16; TEMP 36.3–36.9; O2SAT 86–97
[2022-09-24 05:19] LABS: Anion Gap 11.9 (5-19); Blood Urea Nitrogen 23 mg/dL (6-20); Carbon Dioxide 19 mmol/L (22-29); Chloride 111 mmol/L (98-107); Glomerular Filtration Rate 64.1 mL/min (90-130); Glucose 112 mg/dL (65-115); Osmolality Calculated 288 mOsm/kg (285-295); Potassium 4.9 mmol/L (3.5-5.1); Sodium 137 mmol/L (136-145)
--- NOTE | 2022-09-24 06:00 | ECG_ITS ---
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 Interpretive Statements NAME OF STUDY: LEXISCAN SESTAMIBI STRESS TEST INDICATION: [bradycardia, ] Procedure: At the baseline, the blood pressure was 122/52 mmHg with a heart rate of 45 bpm. The electrocardiogram showed sinus bradycardia, T wave inversions noted in the V1-V4. The Lexiscan was infused over a period of 20 seconds. A total of 0.4 mg of Lexiscan was infused. The stress phase was continued for a total of 5 minutes. Heart rate was at the end of stress phase was 76 bpm and a blood pressure of 108/44mmHg. The EKG at the peak infusion revealed normal sinus rhythm with no significant ST-T wave changes. Sestamibi was injected 20 seconds after the Lexiscan infusion. Blood pressure at the end of recovery phase was 108/47 mmHg with a heart rate of 69 bpm. Conclusion: 1. Normal EKG response to Lexiscan infusion 2. No Lexiscan induced chest pain or cardiac arrhythmia. 3. Normal blood pressure and heart rate response. 4. Sestamibi/sestamibi perfusion scan pending; see separate report. Electronically Signed On 10-03-2022 14:48:52 CDT by Ian Vega M.D. [id number]
[2022-09-24] MEDS: gabapentin 300 mg Capsule PO (09:05)
[2022-09-24] MEDS: citalopram 20 mg Tablet PO (09:05)
[2022-09-24] MEDS: tizanidine 4 mg Tablet PO (09:05)
--- NOTE | 2022-09-24 10:06 | P.DS_ITS ---
Discharge Providers Date of Admission: 09/22/22 16:41 Date of Discharge: September 24, 2022 Attending Provider at Admission: Natalia Farrell MD Attending Provider at Discharge: Natalia Farrell MD Primary Care Provider: Susan Sanabria MD Diagnoses at Discharge Discharge Diagnosis (1) Pneumonia: Status: Acute (2) Syncope: Status: Acute (3) COPD exacerbation: Status: Acute (4) Lung mass: Status: Acute (5) Smoking: Status: Acute (6) Sinus bradycardia: Status: Acute Reason for Visit Reason for Visit: RESPIRATORY DISTRESS Hospital Course Hospital Course 57-year-old female with history of lung mass, left lower lobe pleural-based, PET scan done last year did not show any sign of malignancy, patient does not use any oxygen at home, she presented to hospital for recurrent falls without syncopal events(patient never lost consciousness with her falls. ) In the hospital she was orthostatic hypotensive, sinus bradycardia noted on telemetry, but she never became symptomatic with low heart rate, to rule out coronary ischemia and chronotropic incompetence I requested treadmill stress test however patient was not able to do so, Lexiscan stress test did not show any sign of coronary ischemia. Echo unremarkable. Initially she was requiring 5 L, we were able to wean her down to 3.5 L, CT scan showed groundglass opacities, COVID PCR requested, she remained afebrile, she does have multiple compression fractures T6, T9, L1, T4 she does not show any signs of cauda equina. Family meeting conducted, I did tell them about the lung mass progression 2.6 x 4.5 cm, I have asked Dr. Chatman for CT-guided biopsy which could be done outpatient. After biopsy results she could follow-up with Dr. Altman, patient is an active smoker, progression of pleural opacity, cancer is not completely excluded at this point. Patient is orthostatic positive which could result in recurrent falls, IV fluids were given, for orthostasis symptoms I will give her pyridostigmine For her bradycardia she did not show any signs of hemodynamic instability, echo and stress test did not show any coronary ischemia, at this point do not think she will need a pacemaker, will discharge on Holter monitor, EKG consistent with sinus bradycardia Please note patient was taking atenolol which I have discontinued Due to recurrent falls I would also recommend discontinuing Xarelto(patient stating that she was taking anticoagulating agent for a 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 Decker and Dr. Mcgee in the past, diagnosed her with generalized epilepsy, she does have moderate sleep apnea, she does not use any oxygen or CPAP at home, pulmonary function test consistent with restrictive lung disease, PET scan was done by Dr. Decker, please review his note for further details. At the time of discharge I have spoken with Dr. Chatman for outpatient CT-guided biopsy which will be done sometimes next week I will give her referral Physical Exam 2 Narrative: S1, S2 sinus bradycardia heart rate 50 Blood pressure 108/47 mmHg Abdomen soft Back pain Awake and alert GCS 15 obese Discharge Data Studies Completed and Pending Completed Studies During Hospitalization Category Date Time Status CT angio chest PE protcl [id number] Stat Cat Scan 09/22/22 12:39 Completed Sestamibi Stress Test Request Routine Exams 09/24/22 06:00 Draft XR chest 1V portable [id number] Stat Exams 09/22/22 11:36 Completed NM bri perf SPECT r/s* [id number] Routine Nuc Med 09/24/22 16:00 Completed CV. echo complete* [id number] Routine Ultrasound 09/22/22 19:16 Completed Pending at discharge Category Date Time Status Cardiac Stress Test MIBI [Sestamibi Stress Test Request Exams 09/24/22 07:08 Ordered ] Routine Sestamibi Stress Test Request Routine Exams 09/23/22 09:32 Stop Req Blood Culture Stat Lab 09/22/22 12:46 Results COVID OZH [Coronavirus PCR] Routine Lab 09/24/22 09:58 Uncollected Sputum Culture and Gram Stain Stat Lab 09/22/22 12:05 Uncollected Radiology Impressions Chest X-Ray 09/22/22 11:36 IMPRESSION: 1. Groundglass opacities seen throughout both lungs most likely chronic in nature. 2. Small air collection between the parietal and visceral pleura of the right lower lobe. Tiny pneumothorax is not excluded but this is more than likely a small pleural-based emphysematous bleb which can be seen on prior CT scan of the chest. Chest CTA 09/22/22 12:39 IMPRESSION: 1. No evidence of pulmonary embolus. 2. Diffuse hazy ground glass infiltrates throughout both lungs with mosaic attenuation with air trapping. This is unchanged from previous. 3. No pneumothorax. 4. Irregular LEFT lower lobe pleural-based opacity measuring 2.6 x 4.5 cm progressed slightly compared to previous. Consider interval follow-up with PET/CT. 5. New compression fracture L1 described above with loss of approximately 25- 30% vertebral body height. Mild retropulsion with narrowing of the LEFT subarticular recess. 6. New mild compression superior endplate T4 with sclerosis Attempted notification Barry Bautista DO at 09/22/2022 1:59 PM. Laboratory Results WBC 6.6 10^3/uL (4.0-10.0) 09/22/22 11:48 RBC 3.91 10^6/uL (4.1-5.3) L 09/22/22 11:48 Hgb 9.0 g/dL (11.5-15.3) L 09/22/22 11:48 Hct 31.1 % (37.0-47.0) L 09/22/22 11:48 MCV 79.5 fl (81-99) L 09/22/22 11:48 MCH 23.0 pg (28.0-34.0) L 09/22/22 11:48 MCHC 28.9 g/dL (30.0-36.0) L 09/22/22 11:48 RDW 21.7 % (12.1-15.1) H 09/22/22 11:48 Plt Count 287 10^3/cmm (130-400) 09/22/22 11:48 MPV 9.9 fL (7.4-10.4) 09/22/22 11:48 Neut % (Auto) 74.5 % 09/22/22 11:48 Lymph % (Auto) 17.2 % 09/22/22 11:48 [place] % (Auto) 7.1 % 09/22/22 11:48 Eos % (Auto) 0.6 % 09/22/22 11:48 Baso % (Auto) 0.3 % 09/22/22 11:48 Neut # (Auto) 4.90 10^3/uL (1.8-7.7) 09/22/22 11:48 Lymph # (Auto) 1.1 10^3/uL (0.8-4.8) 09/22/22 11:48 [place] # (Auto) 0.5 10^3/uL (0.2-0.9) 09/22/22 11:48 Eos # (Auto) 0.0 10^3/uL (0.0-0.8) 09/22/22 11:48 Baso # (Auto) 0.0 10^3/uL (0.0-0.1) 09/22/22 11:48 Nucleated RBC % (auto) 0 % 09/22/22 11:48 Nucleated RBCs # 0.0 /100WBC 09/22/22 11:48 Specimen Type Arterial 09/22/22 12:30 Sample Site Radial, left 09/22/22 12:30 ABG pH 7.39 (7.35-7.45) 09/22/22 12:30 ABG pCO2 36.2 mmHg (35-45) 09/22/22 12:30 ABG pO2 56.0 mmHg (80.0-100.0) L 09/22/22 12:30 ABG HCO3 21.7 mmol/L (22-26) L 09/22/22 12:30 ABG O2 Saturation 89.1 09/22/22 12:30 ABG Base Excess -3.0 mmol/L (-2.0-2.0) L 09/22/22 12:30 Jarett Test Pos 09/22/22 12:30 A-a O2 Gradient 6.5 mmHg (5-10) 09/22/22 12:30 Hematocrit 28.0 % (37-47) L 09/22/22 12:30 Hgb O2 Saturation 84.3 % (95-100) L 09/22/22 12:30 Carboxyhemoglobin 4.7 %THgb (0.4-20.1) 09/22/22 12:30 Methemoglobin 0.7 % (0.4-1.5) 09/22/22 12:30 Total Hemoglobin 9.1 g/dL (12-16) L 09/22/22 12:30 Sodium 135.0 mmol/L (131-143) 09/22/22 12:30 Potassium 4.4 mmol/L (3.5-5.0) 09/22/22 12:30 Glucose 115.0 mg/dL (70-115) 09/22/22 12:30 Ionized Calcium 1.2 mmol/L (1.1-1.4) 09/22/22 12:30 O2 Delivery Device Nc 09/22/22 12:30 O2 Liters/Min 5.0 % 09/22/22 12:30 Cancer Program Coordinator ID Mayra 09/22/22 12:30 Sodium 137 mmol/L (136-145) 09/24/22 04:38 Potassium 4.9 mmol/L (3.5-5.1) 09/24/22 04:38 Chloride 111 mmol/L (98-107) H 09/24/22 04:38 Carbon Dioxide 19 mmol/L (22-29) L 09/24/22 04:38 Anion Gap 11.9 (5-19) 09/24/22 04:38 BUN 23 mg/dL (6-20) H 09/24/22 04:38 Creatinine 0.9 mg/dL (0.5-0.9) 09/24/22 04:38 GFR Calculation 64.1 mL/min (90-130) L 09/24/22 04:38 Glucose 112 mg/dL (65-115) 09/24/22 04:38 Calculated Osmolality 288 mOsm/kg (285-295) 09/24/22 04:38 Lactic Acid 1.7 mmol/L (0.5-2.2) 09/22/22 12:40 Calcium 8.0 mg/dL (8.5-10.5) L 09/24/22 04:38 Phosphorus 3.5 mg/dL (2.5-4.5) 09/23/22 04:46 Magnesium 2.3 mg/dL (1.7-2.3) 09/23/22 04:46 Total Bilirubin 0.5 mg/dL (0.15-1.2) 09/22/22 11:48 AST 13 U/L (0-32) 09/22/22 11:48 ALT 8 U/L (0-33) 09/22/22 11:48 Alkaline Phosphatase 86 U/L (35-105) 09/22/22 11:48 Troponin T Baseline 17 ng/L (0-10) H 09/22/22 11:48 Troponin T 120 Minute 14.00 ng/L (0-10) H 09/22/22 14:02 Delta Troponin T -3.00 ABS# (0-10) L 09/22/22 14:02 Troponin T Hi Sens 6Hr 10.66 ng/L (0-10) H 09/22/22 17:55 Troponin T Hi Sens 6Hr Delta -6.34 ng/L (0-12) L 09/22/22 17:55 NT-Pro-B Natriuret Pep 68958 pg/mL (0-125) H 09/22/22 12:40 Total Protein 6.5 g/dL (6.6-8.7) L 09/22/22 11:48 Albumin 3.1 g/dL (3.5-5.2) L 09/22/22 11:48 Globulin 3.4 g/dL (1.3-4.6) 09/22/22 11:48 Vitamin B12 206 pg/mL (232-1245) L 09/22/22 14:02 TSH 1.51 uIU/mL (0.27-4.20) 09/22/22 14:02 Urine Color Yellow (Yellow) 09/22/22 14:37 Urine Appearance Clear (CLEAR) 09/22/22 14:37 Urine pH 5 (5-7) 09/22/22 14:37 Ur Specific [place] 1.015 (1.005-1.030) 09/22/22 14:37 Urine Protein Neg (Negative) 09/22/22 14:37 Urine Glucose (UA) Norm (Normal) 09/22/22 14:37 Urine Ketones Negative (Negative) 09/22/22 14:37 Urine Blood Neg (Negative) 09/22/22 14:37 Urine Nitrate Negative (Negative) 09/22/22 14:37 Urine Bilirubin Neg (Negative) 09/22/22 14:37 Urine Urobilinogen 1 mg/dL (Negative) H 09/22/22 14:37 Ur Leukocyte Esterase Negative (Negative) 09/22/22 14:37 Vitals Last Vital Signs Temp 97.5 F L 09/24/22 04:08 Pulse 49 L 09/24/22 09:45 Resp 16 09/24/22 09:45 BP 108/47 09/24/22 07:50 Pulse Ox 97 09/24/22 09:45 O2 Del Method 09/24/22 09:45 O2 Flow Rate 2.5 09/24/22 09:45 Discharge Plan Discharge Patient Disposition: Home Condition: Stable Prescriptions: New pyridostigmine bromide 60 mg Tablet 30 mg PO TID Qty: 90 3RF levofloxacin 750 mg Tablet 750 mg PO Q24H Qty: 7 0RF Continued budesonide-formoterol [Symbicort] 160-4.5 mcg/actuation HFA aerosol inhaler 2 puff inhalation BID Qty: 10.2 3RF oxybutynin chloride 10 mg tablet extended release 24hr 10 mg PO DAILY Qty: 30 3RF tizanidine 2 mg tablet See Rx Instructions .ROUTE .COMPLEX Qty: 90 3RF Dose Instruction: TAKE ONE TABLET BY MOUTH IN THE MORNING AND TAKE TWO TABLETS IN THE EVENING Rx Instructions: TAKE ONE TABLET BY MOUTH IN THE MORNING AND TAKE TWO TABLETS IN THE EVENING mupirocin 2 % ointment 1 applic topical BID Qty: 22 0RF Nitrostat 0.4 mg Tablet, Sublingual 0.4 mg SUBLINGUAL Q5M PRN (Reason: Chest Pain) Rx Instructions: do not exceed 3 doses per episode citalopram 20 mg tablet 20 mg PO DAILY pravastatin 80 mg tablet 80 mg PO BEDTIME gabapentin 300 mg capsule 300 mg PO TID montelukast 10 mg tablet 10 mg PO QPM albuterol sulfate 90 mcg/actuation HFA aerosol inhaler 2 puff inhalation Q6H PRN (Reason: shortness of breath or wheezing) eszopiclone 3 mg tablet 3 mg PO BEDTIME Discontinued atenolol 50 mg tablet 50 mg PO QAM Xarelto 20 mg tablet 20 mg PO QPM Other Ambulatory Orders: CT biopsy lung [id number] (Routine) Timeframe: 2 Days Facility: [facility] - Location: Radiology Ordered By: Natalia Farrell Referrals: Susan Sanabria MD [Primary Care Provider] - 4-7 days Patient Instructions: Opioid Safety Discharge Attestations Time Spent in Discharge Care*: greater than 30 min Quality Metrics Clinical Quality Measures [ No reported AMI, CVA or VTE this stay] Coding Level of Care Code Acute Code for Chg Fwd Diagnoses Pneumonia J18.9 Syncope R55 COPD exacerbation J44.1 Lung mass R91.8 Smoking F17.200 Sinus bradycardia R00.1
[2022-09-24] MEDS: pyridostigmine 60 mg Tablet 30 MG PO (11:44)
[2022-09-24 12:44] LABS: Adenovirus Not Detected (NOT DETECT); Chlamydia Pneumoniae Not Detected (NOT DETECT); Coronavirus 229E,HKU1,NL63,OC4 Detected (NOT DETECT); Human Metapneumovirus Not Detected (NOT DETECT); Human Rhinovirus/Enterovirus Not Detected (NOT DETECT); Influenza A Not Detected (NOT DETECT); Influenza A H1 Not Detected (NOT DETECT); Influenza A H1-2009 Not Detected (NOT DETECT); Influenza A H3 Not Detected (NOT DETECT); Influenza B Not Detected (NOT DETECT); Mycoplasma Pneumoniae Not Detected (NOT DETECT); Parainfluenza Virus Type 1 Not Detected (NOT DETECT); Parainfluenza Virus Type 2 Not Detected (NOT DETECT); Parainfluenza Virus Type 3 Not Detected (NOT DETECT); Parainfluenza Virus Type 4 Not Detected (NOT DETECT); Respiratory Syncytial Virus A Not Detected (NOT DETECT); Respiratory Syncytial Virus B Not Detected (NOT DETECT); SARS-COV-2 Not Detected (NOT DETECT)
--- NOTE | 2022-09-24 15:03 | PC.NURSE ---
Discharge delayed awaiting oxygen from [facility] [place].
--- NOTE | 2022-09-24 16:00 | NMCV_ITS ---
NM bri perf SPECT r/s* [id number] Asia Porras Age: 57 Gender: F : 1965 Exam Date: 09/24/2022 06:35 Ordering Phys: Natalia Farrell MD Technologist: FELIPE Nieves Exam Location: [facility] Indications: CHEST PAIN STRESS TEST Please see separate stress test report in [facility] for full findings IMAGE PROTOCOL Rest/Stress 1 Lexiscan Day Radiopharmaceutical Dose (mCi) Administration Site Administered by Rest: Tc-99m 10.8 IV FELIPE Gutiérrez Sestamibi Stress:Tc-99m 32.9 IV FELIPE Gutiérrez Sestamibi Rest: 24-Sep-2022 60 Discovery 630 Stress: 24-Sep-2022 30 Discovery 630 0.4mg Lexiscan. Supine position only as patient was unable to lay prone. SPECT RESULTS Technical Quality: Excellent Raw Data Analysis: Normal Image Corrections: No attenuation or motion correction applied Summed Stress Score: 0 Summed Rest Score: 1 Summed Difference Score: 0 PERFUSION FINDINGS SPECT images demonstrate homogeneous tracer distribution throughout the myocardium. FUNCTIONAL RESULTS (calculated via Gated SPECT) Stress Image LV EF (%): 82 Stress EDV (mL):57 TID: 0.6 Stress ESV (mL):10 FUNCTIONAL FINDINGS: There is normal left ventricular systolic function. IMPRESSIONS 1. Normal myocardial perfusion imaging with no evidence of ischemia 2. LV systolic function is normal Ian Vega MD (Electronically Signed) Final Date: 24 September 2022 09:58 S
== END 2022-09-24 15:04 | disposition home or self-care (01) | DRG 190 ==
LOC: ER 13:58 → MEDSURG 15:45
PROVIDERS: Admitting Provider Internal Medicine; Emergency Provider Family Medicine; PCP Family Medicine; Visit Provider Internal Medicine
DX: J44.0 Chronic obstructive pulmonary disease with (acute) lower respiratory infection (principal); J18.9 Pneumonia, unspecified organism; S22.040A Wedge compression fracture of fourth thoracic vertebra, initial encounter for closed fracture; S22.050A Wedge compression fracture of T5-T6 vertebra, initial encounter for closed fracture; S22.070A Wedge compression fracture of T9-T10 vertebra, initial encounter for closed fracture; S32.010A Wedge compression fracture of first lumbar vertebra, initial encounter for closed fracture; J44.1 Chronic obstructive pulmonary disease with (acute) exacerbation; I95.1 Orthostatic hypotension; B97.29 Other coronavirus as the cause of diseases classified elsewhere; R91.8 Other nonspecific abnormal finding of lung field; W18.30XA Fall on same level, unspecified, initial encounter; F17.210 Nicotine dependence, cigarettes, uncomplicated; G40.409 Other generalized epilepsy and epileptic syndromes, not intractable, without status epilepticus; G47.33 Obstructive sleep apnea (adult) (pediatric); J98.4 Other disorders of lung; Z79.51 Long term (current) use of inhaled steroids; I48.91 Unspecified atrial fibrillation; E78.2 Mixed hyperlipidemia; I10 Essential (primary) hypertension; E86.0 Dehydration; Z66 Do not resuscitate; E87.5 Hyperkalemia
CPT/HCPCS: 36415; 36600; 71045; 71275; 78452; 80048; 80051; 80053; 81003; 82330; 82607; 82805; 83605; 83735; 83880; 84100; 84443; 84484; 85025; 87040; 87070; 87205; 87635; 93005; 93017; 93306; 94640; 94760; 96374; A9500; G0378; J0456; J0696; J1200; J2920; J7030; J7050; Q9967

== ENCOUNTER → 2022-10-05 09:19 | Outpatient (BNVA) | payer MEDICAID, SELFPAY | PROVIDERS: PCP Family Medicine; Visit Provider Internal Medicine | DX: R00.1 Bradycardia, unspecified (principal); R29.6 Repeated falls; R55 Syncope and collapse | CPT/HCPCS: 93246 ==

== ENCOUNTER → 2022-11-15 12:23 | Outpatient (BNVA) | payer MEDICAID, SELFPAY | PROVIDERS: PCP Family Medicine; Visit Provider Internal Medicine | DX: R07.9 Chest pain, unspecified (principal); G47.30 Sleep apnea, unspecified; I44.30 Unspecified atrioventricular block; F17.210 Nicotine dependence, cigarettes, uncomplicated | CPT/HCPCS: 93005; 99204 ==

== ENCOUNTER → 2022-11-25 14:19 | Outpatient (BNVA) | payer MEDICAID, SELFPAY | PROVIDERS: PCP Family Medicine; Visit Provider Thoracic Surgery (Cardiothoracic Vascular Surgery) | DX: I44.30 Unspecified atrioventricular block (principal) | CPT/HCPCS: 99213 ==

== ENCOUNTER 2022-12-14 06:24 | Day surgery (SDC) | payer MEDICAID, SELFPAY ==
[2022-12-13 11:23] VITALS: BMI 26.4
[2022-12-14] VITALS (21 sets, daily range): BP systolic 100–158; BP diastolic 65–95; PULSE 60–85; RESP 13–21; TEMP 36.1–36.8; O2SAT 90–99
--- NOTE | 2022-12-14 06:31 | SC_ITS ---
WS: [id number] INTRAOPERATIVE TECHNIQUE: 3 Spot fluoroscopic images for intraoperative purposes. FLUOROSCOPY TIME: 127.1 seconds CLINICAL INFORMATION: pacemaker implantation COMPARISON: September 22, 2022 FINDINGS: Intraoperative images obtained for cardiac pacer placement. No visualized pneumothorax. Cardiomegaly. SC/C-arm FL for Pacemaker IMPRESSION: Images obtained for intraoperative purposes.
[2022-12-14 06:51] LABS: Add Urine Microscopic? YES; Bilirubin Urine Neg (Negative); Blood Urine Neg (Negative); Glucose Urine UA Norm (Normal); Ketones Urine Negative (Negative); Leukocyte Esterase Urine Negative (Negative); Nitrate Urine Negative (Negative); Protein Urine Neg (Negative); Urine Appearance Cloudy (CLEAR); Urine Color Yellow (Yellow); Urobilinogen Urine Norm (Negative); pH Urine 5 (5-7)
[2022-12-14 06:59] LABS: Squamous Epithelial Cell Urine 15-25 /hpf (0-5); WBC Urine 0-4 /hpf (0-5)
[2022-12-14 07:00] LABS: Add Urine Culture? No; Bacteria Urine TRACE /hpf; Mucus Urine TRACE /hpf
[2022-12-14 07:02] LABS: Basophils % 0.3 %; Eosinophils # 0.1 10^3/uL (0.0-0.8); Eosinophils % 1.3 %; Hematocrit 39.2 % (37.0-47.0); Hemoglobin 11.8 g/dL (11.5-15.3); Lymphocytes % 18.7 %; Mean Corpuscular HGB Conc 30.1 g/dL (30.0-36.0); Mean Corpuscular Hemoglobin 23.8 pg (28.0-34.0); Mean Corpuscular Volume 79.2 fl (81-99); Mean Platelet Volume 9.9 fL (7.4-10.4); Monocytes # 0.8 10^3/uL (0.2-0.9); Monocytes % 7.5 %; Neutrophils # 7.71 10^3/uL (1.8-7.7); Neutrophils % 71.8 %; Nucleated Red Blood Cells % 0 %; Platelet Count 269 10^3/cmm (130-400); Red Blood Count 4.95 10^6/uL (4.1-5.3); Red Cell Distribution Width 23.3 % (12.1-15.1); White Blood Count 10.7 10^3/uL (4.0-10.0)
[2022-12-14] MEDS: sodium chloride 0.9% 1,000 ML 30 ML IV (07:10)
--- NOTE | 2022-12-14 07:34 | W.PM.OPSUD ---
Surgery/Procedure H&P Update DATE OF PROCEDURE: December 14, 2022 DATE H&P PERFORMED: 11/25/22 H&P UPDATE INFORMATION: I have reviewed H&P completed within last 30 days, I have examined patient prior to procedure and No changes to prior documentation PREOP DIAGNOSIS: AV Heart Block PLANNED PROCEDURE: Operation Date: 12/14/22 08:20 Proposed Procedures p Pacemaker Insertion [id number] E00.1(Not Applicable) - Naren Decker MD
[2022-12-14] MEDS: ceFAZolin 2,000 MG in sodium chloride 0.9% (plus) 50 ML 100 MG IV (07:39)
[2022-12-14 07:40] LABS: Anion Gap 16.9 (5-19); Blood Urea Nitrogen 9 mg/dL (6-20); Carbon Dioxide 24 mmol/L (22-29); Chloride 102 mmol/L (98-107); Glomerular Filtration Rate 56.7 mL/min (90-130); Glucose 113 mg/dL (65-115); Osmolality Calculated 287 mOsm/kg (285-295); Potassium 3.9 mmol/L (3.5-5.1); Sodium 139 mmol/L (136-145)
[2022-12-14] MEDS: ceFAZolin 1,000 mg SDV 1000 MG IRRIGATION (08:09)
[2022-12-14] MEDS: lidocaine 2% INJ 20 mL INJECTION ×2 (08:09→08:27)
--- NOTE | 2022-12-14 08:32 | ANES.PREANE2 ---
Pre-Anesthetic Assessment Height/Weight: Height 1.6 m Weight 67.585 kg Temp Pulse Resp BP Pulse Ox O2 Del Method O2 Flow Rate 97.7 F 83 20 H 108/65 91 Nasal Cannula 4 12/14/22 07:02 12/14/22 07:02 12/14/22 07:02 12/14/22 07:02 12/14/22 07:02 12/14/22 07:02 12/14/22 07:02 Preop Diagnosis: AV Heart Block Operation Date: 12/14/22 08:20 Proposed Procedures p Pacemaker Insertion [id number] E00.1(Not Applicable) - Naren Decker MD Familial anesthetic complications: none Was Beta Ibeth taken within 24 hours: N/A Was Clonidine taken within 24 hours: N/A Last intake: Intake Last Liquid Date 12/13/22 Last Liquid Time 22:30 Last Solid Date 12/14/22 Last Solid Time 21:00 Social Tobacco and No alcohol Exam alert, oriented x 3 and regular rate & rhythm Airway Submandibular: within normal limits Cervical ROM: within normal limits Mallampati: Class II Dentition: chipped Pulmonary Chronic Obstructive Pulmonary Disease and Sleep Apnea Home oxygen, restrictive lung dz CV/HEM Arrythmia Anesthetic Plan ASA status: 3 Anesthesia: Choice Medications/Allergies Home Medications Medication Instructions Recorded Confirmed Last Taken Type budesonide-formoterol HFA 160 2 puff inhalation BID #10.2 grams 08/31/22 12/13/22 12/13/22 Rx mcg-4.5 mcg/actuation aerosol inhaler (Symbicort) oxybutynin chloride 10 mg 10 mg PO DAILY #30 tabs 08/31/22 12/13/22 12/13/22 Rx tablet,extended release 24 hr tizanidine 2 mg tablet See Rx Instructions .Route 08/31/22 12/13/22 12/10/22 Rx .COMPLEX #90 tabs albuterol sulfate 90 mcg/actuation 2 puff inhalation Q6H PRN 09/22/22 12/13/22 12/13/22 History aerosol inhaler shortness of breath or wheezing citalopram 20 mg tablet 20 mg PO DAILY 09/22/22 12/13/22 12/13/22 History eszopiclone 3 mg tablet (Lunesta) 3 mg PO BEDTIME 09/22/22 12/13/22 12/13/22 History gabapentin 300 mg capsule 300 mg PO TID 09/22/22 12/13/22 12/13/22 History montelukast 10 mg tablet 10 mg PO QPM 09/22/22 12/13/22 12/13/22 History nitroglycerin 0.4 mg sublingual 0.4 mg sublingual Q5M PRN Chest 09/22/22 12/13/22 Unknown History tablet (Nitrostat) Pain pravastatin 80 mg tablet 80 mg PO BEDTIME 09/22/22 12/13/22 12/13/22 History pyridostigmine bromide 60 mg 30 mg PO TID 12/13/22 12/13/22 12/13/22 History tablet (Mestinon) Allergies Allergy/AdvReac Type Severity Reaction Status Date / Time Sulfa (Sulfonamide Allergy Mild Unknown Verified 12/14/22 06:41 Antibiotics) Iodinated Contrast Media Allergy ADR-Itching Verified 12/14/22 06:41 Current Medications Generic Name Dose Route Start Last Admin Trade Name Freq PRN Reason Stop Dose Admin Sodium Chloride 1,000 mls @ 30 mls/hr 12/14/22 07:00 12/14/22 07:10 Sodium Chloride 0.9% IV 12/15/22 06:59 30 mls/hr .Q24H MAITE Administration PFSH Anesthesia Medical History Abscess Allergic rhinitis Chronic obstructive pulmonary disease COPD exacerbation Cough Essential hypertension Generalized epilepsy Hyperlipemia, mixed Insomnia Lung mass Pneumonia PVT (portal vein thrombosis) Sinus bradycardia Sleep apnea Smoking Syncope Urine incontinence Surgical History History of cholecystectomy History of tubal ligation Hx of breast reduction, elective Family History Grandmother CAD (coronary artery disease) Cancer Diabetes Mother Cancer Brother Cancer Sister Cancer Denies family history of Hypertension Stroke Social History Smoking and tobacco status: current every day smoker cigarettes Packs smoked per day: 0.5 Years cigarettes smoked: 50 Second hand smoke exposure: No Smoking risk assessment/counseling performed?: Yes Alcohol intake: former Year of sobriety/quit date alcohol: 30 y Desire information about alcohol rehabilitation?: No Counseling given: No Substance/Drug Use: unknown Desire information about substance/drug rehabilitation?: No Counseling given: No Adopted: No Caregiver/support person: No Lives independently: No Household members: caregiver Housing: House Marital status: Number of children: 1 service: No Current occupational status: unemployed Pets and animals: No Do you think of yourself as: Straight/Heterosexual Current gender identity: Female Data Anesthesia 12/14/22 06:56 12/14/22 07:16 Short CBC 12/14/22 Range/Units 06:56 WBC 10.7 H (4.0-10.0) 10^3/uL Hgb 11.8 (11.5-15.3) g/dL Hct 39.2 (37.0-47.0) % MCV 79.2 L (81-99) fl Plt Count 269 (130-400) 10^3/cmm Neut % (Auto) 71.8 % Neut # (Auto) 7.71 H (1.8-7.7) 10^3/uL BMP 12/14/22 12/14/22 06:56 07:16 Sodium Cancelled 139 Potassium Cancelled 3.9 Chloride Cancelled 102 Carbon Dioxide Cancelled 24 BUN Cancelled 9 Creatinine Cancelled 1.0 H Glucose Cancelled 113 Calcium Cancelled 9.0 Urine 12/14/22 Range/Units 06:39 Urine Color Yellow (Yellow) Urine Appearance Cloudy A (CLEAR) Urine pH 5 (5-7) Ur Specific [place] 1.020 (1.005-1.030) Urine Protein Neg (Negative) Urine Glucose (UA) Norm (Normal) Urine Ketones Negative (Negative) Urine Nitrate Negative (Negative) Urine Bilirubin Neg (Negative) Ur Leukocyte Esterase Negative (Negative) Urine RBC None (0-2) /hpf Urine WBC 0-4 H (0-5) /hpf Cardiac Studies: Echocardiogram 09/22/22 Sestamibi Stress Test (Cardiology) 09/24/22 Holter Monitor 10/05/22
--- NOTE | 2022-12-14 09:05 | XR_ITS ---
WS: [id number] INTRAOPERATIVE TECHNIQUE: Spot fluoroscopic images for intraoperative purposes. FLUOROSCOPY TIME: seconds CLINICAL INFORMATION: in pacu for post op pacemaker COMPARISON: September 13, 2018 3 FINDINGS: Cardiac pacer. Cardiomegaly. Interstitial infiltrates or edema in the perihilar regions and both lowe r lobes. Chronic emphysema. Osteopenia. No pneumothorax. Trace RIGHT pleural fluid or pleural thicken ing. XR/XR chest 1V portable [id number] IMPRESSION: 1. Postoperative cardiac pacer. No pneumothorax. 2. Interstitial infiltrates or edema in the perihilar regions and both lower l obes similar to September 22, 2022. 3. Cardiomegaly.
--- NOTE | 2022-12-14 09:42 | PM.OP ---
Operative Report Date of procedure: December 14, 2022 Pre-op diagnosis: Preop Diagnosis AV Heart Block Post-op diagnosis: same Procedure done: Dual-chamber pacemaker and lead implantation Implants: Medtronic atrial and ventricular leads Medtronic generator Pathology: none sent Surgeon: Naren Decker Anesthesia: MAC and Local Complications: None Condition: stable Disposition: PACU Brief History: Ms. Porras is a pleasant, short statured, 57-year-old female referred to our service by Dr. Vega to consider pacemaker implantation secondary to AV heart block. Holter monitor of October 05 revealed sinus bradycardia to sinus tachycardia with occasional second-degree AV heart block with 2-1 conduction and interventricular conduction delay. She did have 1 syncopal episode while visiting with Dr. Vega during scheduled visit on November 15. She has a prior hospitalization back in August sinus bradycardia and orthostatic hypotension. Given these findings, Dr. Vega was recommended pacemaker implantation. Details of risk of the procedure were carefully and frankly discussed with Ms. Porras and her daughter. Risk reviewed include possibility of , heart attack, stroke, major bleeding, pneumothorax requiring chest tube, inability to place the generator or pacemaker leads, malfunction of the device, need for repositioning of the leads in the early postop period, and pain at insertion site. All questions are Answered. Appropriate consents have been reviewed and signed. Procedure: Procedure: Ms. Porras was taken to the OR suite and placed in the supine position over a shoulder roll. She received conscious sedation with continuous anesthesia monitoring by. Her entire chest was sterilely prepped and draped. Due to her reported dilated contrast media allergy, we elected not to place an [place] drape. 1% lidocaine was infiltrated in the left subclavicular region. While in Trendelenburg position, utilizing modified seldinger technique, along with handheld ultrasound guidance, 2 guidewires were placed in the left subclavian vein. This was confirmed in position by fluoroscopy. Next, after infiltration with lidocaine, a subcutaneous pocket was created beginning from the exit point of the guidewire and extending laterally and inferiorly. Cautery was utilized to create the pocket just above the pectoralis musculature. Hemostasis was confirmed. An antibiotic-soaked sponge was placed in the wound. A dilator and tear-away sheath was placed over the first guidewire and advanced under fluoroscopy. Guidewire and dilator were removed. Next using a combination of curved and straight stylettes, the right ventricular lead was placed in position by fluoroscopy. The distal screw was extended. Interrogation was then performed confirming appropriate parameters. The tear-away sheath was then removed and the ventricular lead was sewn to the floor of the subcutaneous pocket. In a similar fashion dilator and tear-away sheath was placed over the 2nd guide wire and advanced under fluoroscopy. Guidewire and dilator were removed. Straight and curved stylettes were used to position the right atrial lead with fluoroscopy. Distal screw was extended. Interrogation was then performed. Tear-away sheath was then removed. Atrial lead was secured to the floor of the subcutaneous pocket. Pocket was irrigated with antibiotic solution and hemostasis again confirmed. Pacing generator was brought into the field, and after confirmation of hemostasis in the subcutaneous pocket, the leads were connected to the generator with appropriate capture. The entire system was interrogated by fluoroscopy. Leads and generator were secured in the pocket. Sponge and needle count was correct. The wound was then closed in 2 layers of 3-0 Vicryl suture. Skin was reapproximated in a subcuticular manner with 4-0 Monocryl suture. A pressure dressing was applied. The left arm was placed in a sling. Ms. Porras had equal breath sounds bilaterally. She was then transferred to the PACU, where chest x-ray revealed appropriate lead positioning and no evidence for pneumothorax. There was platelike atelectasis in the right midlung field. No evidence for pleural effusion. Cardiac silhouette was unremarkable. I did insurance counselor with her daughter at the completion of the procedure. She will convalesce tonight as outpatient in a bed on the second floor. Following are the specifics of this system: Right ventricular lead is 52 cm and model 5076. Serial number [id number] Right atrial lead is 45 cm and is model 5076. Serial number [id number]. Ventricular lead had sensing of 10 mV with an impedance of 741 ohms. Threshold was 0.5 V Atrial lead had sensing of 1.2 mV with an impedance of 703 ohms. Threshold was 0.8 V. [employer] generator: Model # [id number] Serial # [id number]
[2022-12-14] MEDS: HYDROcodone-acetaminophen 5-325 mg Tablet 1 TAB PO ×2 (13:13→20:30)
[2022-12-14] MEDS: albuterol 2.5 mg/3 mL Neb INHALATION ×3 (13:23→19:23)
[2022-12-14] MEDS: ceFAZolin 1,000 MG in sodium chloride 0.9% (plus) 50 ML 100 MG IV (15:25)
[2022-12-14] MEDS: gabapentin 300 mg Capsule PO ×2 (15:26→20:16)
[2022-12-14] MEDS: pyridostigmine 60 mg Tablet 30 MG PO ×2 (15:26→20:16)
--- NOTE | 2022-12-14 17:16 | ANE.PACU2 ---
Inpatient post-anesthesia follow up: Airway intact: Yes Vital signs: Temperature 97.6 F Pulse Rate 83 Respiratory Rate 18 Blood Pressure 112/82 Pulse Oximetry 95 Oxygen Delivery Me thod Nasal Cannula Oxygen Flow Rate 4 Fraction of Inspir ed Oxygen Hydration adequate: Yes Nausea and vomiting: No Pain level: 2 Mental status: Baseline
[2022-12-14] MEDS: montelukast sodium 10 mg Tablet PO (17:33)
[2022-12-14] MEDS: budesonide 0.5 mg/2 mL Neb INHALATION (19:23)
[2022-12-14] MEDS: atorvastatin 40 mg Tablet 20 MG PO (20:15)
--- NOTE | 2022-12-14 20:36 | PC.NURSE ---
Pt states she has had multiple falls in the last week, once when she was getting out of the shower, once when she was coming into the house, and several more falls in the following days. She requires one assist to get up and states she uses a cane at home, and that using the cane is new for her.
[2022-12-15] MEDS: ceFAZolin 1,000 MG in sodium chloride 0.9% (plus) 50 ML 100 MG IV ×2 (00:45→08:26)
[2022-12-15 03:55] VITALS: BP 114/82; PULSE 64; RESP 18; TEMP 36.8; O2SAT 94
--- NOTE | 2022-12-15 05:50 | P.DS_ITS ---
Discharge Providers Date of Admission: December 14, 2022 Date of Discharge: December 15, 2022 Attending Provider at Admission: Dr. Decker Attending Provider at Discharge: Narne Decker MD Primary Care Provider: Susan Sanabria MD Reason for Visit Reason for Visit: 55378 R00.1 Brief History: Ms. Porras is a 57-year-old female referred to our service for Dr. Vega to consider pacemaker implantation. She had a history of near syncope and during hospitalization in August of this year was found to have sinus bradycardia and orthostatic hypotension. Holter monitoring has revealed varying heart rates from 142 bpm down to 28 bpm. 2-1 second-degree AV block conduction has been documented. Rationale for pacemaker implantation was carefully and frankly discussed with her. Proper consents have been reviewed and signed. Hospital Course Hospital Course Ms. Porras was electively admitted on December 14, 2022 and underwent dual-chamber pacemaker implantation. She convalesced on the medical/surgical woodard postoperatively. She has done well with minimal discomfort. Rhythm is mostly paced. There have been no concerns reported by nursing. She is tolerating a diet well. Vital signs have remained stable. Outer surgical dressing was removed this morning. Her dressing is clean and dry. There is mild ecchymosis but no evidence for subcutaneous fluid collection. She is eager for discharge home. She will be discharged home today in stable condition. Physical Exam Chest: COMMONS NORMALS: normal palpation of entire chest wall OTHER: Mild tenderness at insertion site. Mild ecchymosis. No evidence for fluid collection. Inner dressing is clean and dry. Resp: COMMON NORMALS: normal respiratory effort and clear to auscultation bilaterally AUSCULTATION: clear to auscultation bilaterally Cardio: COMMON NORMALS: regular rate, regular rhythm and No murmurs present (Cardio) RATE: regular rate RHYTHM: regular rhythm Discharge Data Studies Completed and Pending Completed Studies During Hospitalization Category Date Time Status XR chest 1V portable [id number] Routine Exams 12/14/22 09:05 Completed Radiology Impressions C-Arm Fluoroscopy 12/14/22 06:31 IMPRESSION: Images obtained for intraoperative purposes. Chest X-Ray 12/14/22 09:05 IMPRESSION: 1. Postoperative cardiac pacer. No pneumothorax. 2. Interstitial infiltrates or edema in the perihilar regions and both lower lobes similar to September 22, 2022. 3. Cardiomegaly. Laboratory Results WBC 10.7 10^3/uL (4.0-10.0) H 12/14/22 06:56 RBC 4.95 10^6/uL (4.1-5.3) 12/14/22 06:56 Hgb 11.8 g/dL (11.5-15.3) 12/14/22 06:56 Hct 39.2 % (37.0-47.0) 12/14/22 06:56 MCV 79.2 fl (81-99) L 12/14/22 06:56 MCH 23.8 pg (28.0-34.0) L 12/14/22 06:56 MCHC 30.1 g/dL (30.0-36.0) 12/14/22 06:56 RDW 23.3 % (12.1-15.1) H 12/14/22 06:56 Plt Count 269 10^3/cmm (130-400) 12/14/22 06:56 MPV 9.9 fL (7.4-10.4) 12/14/22 06:56 Neut % (Auto) 71.8 % 12/14/22 06:56 Lymph % (Auto) 18.7 % 12/14/22 06:56 Mcdowell % (Auto) 7.5 % 12/14/22 06:56 Eos % (Auto) 1.3 % 12/14/22 06:56 Baso % (Auto) 0.3 % 12/14/22 06:56 Neut # (Auto) 7.71 10^3/uL (1.8-7.7) H 12/14/22 06:56 Lymph # (Auto) 2.0 10^3/uL (0.8-4.8) 12/14/22 06:56 Mcdowell # (Auto) 0.8 10^3/uL (0.2-0.9) 12/14/22 06:56 Eos # (Auto) 0.1 10^3/uL (0.0-0.8) 12/14/22 06:56 Baso # (Auto) 0.0 10^3/uL (0.0-0.1) 12/14/22 06:56 Nucleated RBC % (auto) 0 % 12/14/22 06:56 Nucleated RBCs # 0.0 /100WBC 12/14/22 06:56 Sodium 139 mmol/L (136-145) 12/14/22 07:16 Potassium 3.9 mmol/L (3.5-5.1) 12/14/22 07:16 Chloride 102 mmol/L (98-107) 12/14/22 07:16 Carbon Dioxide 24 mmol/L (22-29) 12/14/22 07:16 Anion Gap 16.9 (5-19) 12/14/22 07:16 BUN 9 mg/dL (6-20) 12/14/22 07:16 Creatinine 1.0 mg/dL (0.5-0.9) H 12/14/22 07:16 GFR Calculation 56.7 mL/min (90-130) L 12/14/22 07:16 Glucose 113 mg/dL (65-115) 12/14/22 07:16 Calculated Osmolality 287 mOsm/kg (285-295) 12/14/22 07:16 Calcium 9.0 mg/dL (8.5-10.5) 12/14/22 07:16 Urine Color Yellow (Yellow) 12/14/22 06:39 Urine Appearance Cloudy (CLEAR) A 12/14/22 06:39 Urine pH 5 (5-7) 12/14/22 06:39 Ur Specific [place] 1.020 (1.005-1.030) 12/14/22 06:39 Urine Protein Neg (Negative) 12/14/22 06:39 Urine Glucose (UA) Norm (Normal) 12/14/22 06:39 Urine Ketones Negative (Negative) 12/14/22 06:39 Urine Blood Neg (Negative) 12/14/22 06:39 Urine Nitrate Negative (Negative) 12/14/22 06:39 Urine Bilirubin Neg (Negative) 12/14/22 06:39 Urine Urobilinogen Norm mg/dL (Negative) 12/14/22 06:39 Ur Leukocyte Esterase Negative (Negative) 12/14/22 06:39 Urine RBC None /hpf (0-2) 12/14/22 06:39 Urine WBC 0-4 /hpf (0-5) H 12/14/22 06:39 Ur Squamous Epith Cells 15-25 /hpf (0-5) H 12/14/22 06:39 Amorphous Sediment Not Reportable 12/14/22 06:39 Urine Bacteria Trace /hpf (NONE) 12/14/22 06:39 Urine Mucus Trace /hpf 12/14/22 06:39 Procedures Performed Dual-chamber pacemaker implantation on December 14, 2022 Vitals Last Vital Signs Temp 98.2 F 12/15/22 03:55 Pulse 64 12/15/22 03:55 Resp 18 12/15/22 03:55 BP 114/82 12/15/22 03:55 Pulse Ox 94 12/15/22 03:55 O2 Del Method Nasal Cannula 12/15/22 03:55 O2 Flow Rate 4 12/14/22 20:37 Discharge Plan Discharge Patient Disposition: Home Condition: Stable Prescriptions: New hydrocodone-acetaminophen 5-325 mg Tablet 1 tab PO Q8H PRN (Reason: Moderate Pain) Qty: 12 0RF cephalexin 500 mg capsule 500 mg PO TID 3 Days Qty: 9 0RF Continued budesonide-formoterol [Symbicort] 160-4.5 mcg/actuation HFA aerosol inhaler 2 puff inhalation BID Qty: 10.2 3RF oxybutynin chloride 10 mg tablet extended release 24hr 10 mg PO DAILY Qty: 30 3RF tizanidine 2 mg tablet See Rx Instructions .ROUTE .COMPLEX Qty: 90 3RF Dose Instruction: TAKE ONE TABLET BY MOUTH IN THE MORNING AND TAKE TWO TABLETS IN THE EVENING Rx Instructions: TAKE ONE TABLET BY MOUTH IN THE MORNING AND TAKE TWO TABLETS IN THE EVENING nitroglycerin [Nitrostat] 0.4 mg Tablet, Sublingual 0.4 mg SUBLINGUAL Q5M PRN (Reason: Chest Pain) Rx Instructions: do not exceed 3 doses per episode citalopram 20 mg tablet 20 mg PO DAILY pravastatin 80 mg tablet 80 mg PO BEDTIME gabapentin 300 mg capsule 300 mg PO TID montelukast 10 mg tablet 10 mg PO QPM albuterol sulfate 90 mcg/actuation HFA aerosol inhaler 2 puff inhalation Q6H PRN (Reason: shortness of breath or wheezing) eszopiclone [Lunesta] 3 mg tablet 3 mg PO BEDTIME pyridostigmine bromide [Mestinon] 60 mg tablet 30 mg PO TID Discharge Orders: Discharge Order (Routine); Ordered 12/15/22 Ordered By: Naren Decker Referrals: [facility] [Provider Group] - 1 week (Pacemaker clinic) Discharge Diet: Usual diet Discharge Activity: Limit activity as instructed Activity Restrictions/Additional Instructions: May remove bandage in 2 days May begin daily showers in 3 days Dry incision carefully after showers. May re-cover if desired to prevent irritation from clothing. No swimming or tub baths x 2 weeks No ointments on incision Report drainage, redness, heat, increased pain, or swelling to clinic Do not raise left arm above eye level for 2 weeks Do not lift, push, or pull greater than 5 pounds with left arm x2 weeks Take antibiotic, cephalexin, 1 tablet 3 times daily for the next 3 days until completed Discharge Attestations Time Spent in Discharge Care*: less than 30 min Specific Discharge Activities: educating patient, educating and/or supporting family/caregiver, discussing with correctional case manager/social workers/dc planners, documenting/other paperwork and evaluating patient/reviewing data Status at Discharge: Cognitive status at discharge: cognitively intact , Behavioral status at discharge: cooperative , Functional status at discharge: independent ambulation , Overall status at discharge: patient is back to baseline Quality Metrics Clinical Quality Measures [ No reported AMI, CVA or VTE this stay] Coding Level of Care Code Acute Code for Chg Fwd Diagnoses
[2022-12-15 07:46] VITALS: BP 148/71; PULSE 74; RESP 16; TEMP 36.8; O2SAT 95
[2022-12-15 07:51] VITALS: PULSE 74; RESP 16; O2SAT 93
[2022-12-15] MEDS: albuterol 2.5 mg/3 mL Neb INHALATION (07:51)
[2022-12-15] MEDS: budesonide 0.5 mg/2 mL Neb INHALATION (07:51)
[2022-12-15 07:58] VITALS: PULSE 71
[2022-12-15] MEDS: gabapentin 300 mg Capsule PO (08:26)
[2022-12-15] MEDS: citalopram 20 mg Tablet PO (08:26)
[2022-12-15] MEDS: pantoprazole DR 40 mg Tablet PO (08:26)
[2022-12-15] MEDS: HYDROcodone-acetaminophen 5-325 mg Tablet 1 TAB PO (08:26)
[2022-12-15] MEDS: oxybutynin chloride XL 5 MG TABLET 10 MG PO (08:27)
[2022-12-15] MEDS: pyridostigmine 60 mg Tablet 30 MG PO (08:34)
[2022-12-15 10:54] VITALS: PULSE 71
--- NOTE | 2022-12-15 10:58 | PC.NURSE ---
Discharge Note Patient discharged to home via private vehicle accompanied by daughters. Discharge instructions reviewed with patient and/or community relations representative. Mobile pharmacy medications and/or prescriptions provided. Belongings/home medications returned.
== END 2022-12-15 12:19 | disposition home or self-care (01) ==
LOC: OR 06:24 → MEDSURG 10:11
PROVIDERS: PCP Family Medicine; Visit Provider Thoracic Surgery (Cardiothoracic Vascular Surgery)
PROC: (CPT 33208; principal; 2022-12-14 08:10)
DX: I44.1 Atrioventricular block, second degree (principal); I11.9 Hypertensive heart disease without heart failure; J44.9 Chronic obstructive pulmonary disease, unspecified; G47.30 Sleep apnea, unspecified; E78.2 Mixed hyperlipidemia; G40.409 Other generalized epilepsy and epileptic syndromes, not intractable, without status epilepticus; F17.210 Nicotine dependence, cigarettes, uncomplicated; Z88.2 Allergy status to sulfonamides; Z99.81 Dependence on supplemental oxygen
CPT/HCPCS: 33208; 36415; 71045; 76000; 80048; 81001; 85025; 94640; C1779; C1786; J0690; J2704; J3010; J7030; J7613; J7626

== ENCOUNTER → 2023-03-22 14:04 | Outpatient (BNVA) | payer MEDICAID, SELFPAY | PROVIDERS: PCP Family Medicine; Visit Provider Nurse Practitioner Family | DX: Z95.0 Presence of cardiac pacemaker (principal) | CPT/HCPCS: 99214 ==

== ENCOUNTER → 2023-06-01 17:04 | Outpatient (BNVA) | payer MEDICAID, SELFPAY | PROVIDERS: PCP Family Medicine; Visit Provider Internal Medicine | DX: Z45.010 Encounter for checking and testing of cardiac pacemaker pulse generator [battery] (principal) | CPT/HCPCS: 93296 ==

== ENCOUNTER → 2023-06-09 14:30 | Outpatient (BNVA) | payer MEDICAID, SELFPAY | PROVIDERS: PCP Family Medicine; Visit Provider Family Medicine | DX: J44.9 Chronic obstructive pulmonary disease, unspecified (principal); Z23 Encounter for immunization; E78.5 Hyperlipidemia, unspecified; J98.4 Other disorders of lung; E78.2 Mixed hyperlipidemia; G62.9 Polyneuropathy, unspecified; F32.A Depression, unspecified | CPT/HCPCS: 80053; 80061; 84443; 85025 ==

== ENCOUNTER → 2023-07-10 08:16 | Outpatient (BNVA) | payer MEDICAID, SELFPAY | PROVIDERS: PCP Family Medicine; Visit Provider Internal Medicine | DX: Z45.010 Encounter for checking and testing of cardiac pacemaker pulse generator [battery] (principal) | CPT/HCPCS: 93296 ==

== ENCOUNTER → 2023-10-20 11:29 | Outpatient (BNVA) | payer MEDICAID, SELFPAY | PROVIDERS: PCP Family Medicine; Visit Provider Family Medicine | DX: E78.2 Mixed hyperlipidemia (principal) | CPT/HCPCS: 80053; 80061; 84443; 85025 ==

== ENCOUNTER → 2024-02-01 09:35 | Outpatient (BNVA) | payer MEDICAID, SELFPAY | PROVIDERS: PCP Family Medicine; Visit Provider Internal Medicine | DX: Z45.02 Encounter for adjustment and management of automatic implantable cardiac defibrillator (principal) | CPT/HCPCS: 93296 ==

== ENCOUNTER → 2024-04-18 08:47 | Outpatient (BNVA) | payer MEDICAID, SELFPAY | PROVIDERS: PCP Family Medicine; Visit Provider Clinical Nurse Specialist Adult Health | DX: I10 Essential (primary) hypertension (principal); E78.2 Mixed hyperlipidemia | CPT/HCPCS: 80053; 80061; 85025 ==

== ENCOUNTER 2024-07-12 13:33 | Outpatient (CLI) | payer MEDICAID, SELFPAY ==
--- NOTE | 2024-07-12 14:00 | MM_ITS ---
WS: [id number] BILATERAL 3D TOMOSYNTHESIS DIGITAL DIAGNOSTIC MAMMOGRAPHY WITH CAD CLINICAL INFORMATION: N63.0 - Unspecified lump in unspecified breast HISTORY: LEFT breast lump with recent antibiotic treatment. History of breast reduction. Improvement after antibiotics. COMPARISON: None. TECHNIQUE: Bilateral CC, MLO, and ML views. FINDINGS: Scattered fibroglandular densities bilaterally. Palpable marker near the LEFT nipple. Associated skin thickening in this area with increased parenchymal density. Ultrasound is pending. Unremarkable RIGHT breast. Cardiac pacer. ULTRASOUND BREAST LEFT TECHNIQUE: Ultrasound left breast focused area of concern. CLINICAL INFORMATION: N63.0 - Unspecified lump in unspecified breast FINDINGS: Ultrasound LEFT breast area of concern near the areola. Subcutaneous eccentric complex collection LEF T breast at the 1 o'clock position 1 cm from the nipple in the area of concern. Associated skin thick ening. Dense internal echogenic debris within this superficial collection most likely representing ab scess. This does not appear easily drainable. This measures approximately 4.0 x 0.6 x 2.7 cm. Recomme nd ultrasound follow-up in 3 to 4 weeks after additional antibiotic therapy. In addition, consider br east surgery consultation for incision and drainage especially if incomplete response to antibiotics. Collection should be followed up to resolution. MM/MM diag BI tomosynthesis [id number] IMPRESSION: DENSITY: There are scattered areas of fibroglandular density. BI-RADS: 3 - Probably Benign. FOLLOW UP: See Report Recommend ultrasound follow-up of the presumed LEFT breast abscess in 3 to 4 we eks after additional therapy. Also consider breast surgical consultation for in cision and drainage.
--- NOTE | 2024-07-12 14:30 | US_ITS ---
WS: [id number] BILATERAL 3D TOMOSYNTHESIS DIGITAL DIAGNOSTIC MAMMOGRAPHY WITH CAD CLINICAL INFORMATION: N63.0 - Unspecified lump in unspecified breast HISTORY: LEFT breast lump with recent antibiotic treatment. History of breast reduction. Improvement after antibiotics. COMPARISON: None. TECHNIQUE: Bilateral CC, MLO, and ML views. FINDINGS: Scattered fibroglandular densities bilaterally. Palpable marker near the LEFT nipple. Associated skin thickening in this area with increased parenchymal density. Ultrasound is pending. Unremarkable RIGHT breast. Cardiac pacer. ULTRASOUND BREAST LEFT TECHNIQUE: Ultrasound left breast focused area of concern. CLINICAL INFORMATION: N63.0 - Unspecified lump in unspecified breast FINDINGS: Ultrasound LEFT breast area of concern near the areola. Subcutaneous eccentric complex collection LEF T breast at the 1 o'clock position 1 cm from the nipple in the area of concern. Associated skin thick ening. Dense internal echogenic debris within this superficial collection most likely representing ab scess. This does not appear easily drainable. This measures approximately 4.0 x 0.6 x 2.7 cm. Recomme nd ultrasound follow-up in 3 to 4 weeks after additional antibiotic therapy. In addition, consider br east surgery consultation for incision and drainage especially if incomplete response to antibiotics. Collection should be followed up to resolution. US/US breast LT complete [id number] IMPRESSION: DENSITY: There are scattered areas of fibroglandular density. BI-RADS: 3 - Probably Benign. FOLLOW UP: See Report Recommend ultrasound follow-up of the presumed LEFT breast abscess in 3 to 4 we eks after additional therapy. Also consider breast surgical consultation for in cision and drainage.
== END 2024-07-12 13:34 | disposition home or self-care (01) ==
LOC: RAD 13:34
PROVIDERS: PCP Clinical Nurse Specialist Adult Health; Visit Provider Clinical Nurse Specialist Adult Health
DX: N63.21 Unspecified lump in the left breast, upper outer quadrant (principal); R92.323 Mammographic fibroglandular density, bilateral breasts; R92.8 Other abnormal and inconclusive findings on diagnostic imaging of breast; Z95.0 Presence of cardiac pacemaker; Z87.898 Personal history of other specified conditions
CPT/HCPCS: 76641; 77062; G0279

== ENCOUNTER 2024-08-13 01:44 | Emergency (ER) | payer MEDICAID, SELFPAY ==
[2024-08-13 01:49] VITALS: BP 145/67; PULSE 74; RESP 18; TEMP 36.8; O2SAT 92; BMI 26.0
--- NOTE | 2024-08-13 01:55 | XRR_ITS ---
PROCEDURE INFORMATION: Exam: XR Chest Exam date and time: 08/13/2024 1:56 AM Age: 59 years old Clinical indication: Prior surgery; Surgery date: 6+ months; Surgery type: Pacer; C/O general weakness TECHNIQUE: Imaging protocol: Radiologic exam of the chest. Views: 1 view. COMPARISON: CT angio chest PE protcl [id number] 09/22/2022 1:09 PM FINDINGS: Lungs: Chronic interstitial change similar to priors. No acute infiltrates seen. Bibasilar fibrotic changes appear similar to prior 09/22/2022 Pleural spaces: Unremarkable. No pleural effusion. No pneumothorax. Heart/Mediastinum: Unremarkable. No cardiomegaly. Pacemaker. Bones/joints: Unremarkable. XR/XR chest 1V portable [id number] IMPRESSION: No acute findings. Chronic interstitial change.
--- NOTE | 2024-08-13 01:56 | ECG_ITS ---
[facility] Test Date: 2024-08-13 Pat Name: Asia Porras Department: Room: Gender: Female Feed Adviser: : 1965 Requested By: Quinn Mcmahon Order Number: [id number] Dunn MD: Porfirio Gay M.D. Measurements Intervals [place] Rate: 65 P: 114 SD: 164 QRS: 80 QRSD: 80 T: 57 QT: 385 QTc: 400 Interpretive Statements ELECTRONIC ATRIAL PACEMAKER EARLY REPOLARIZATION [ST ELEVATION WITH NORMALLY INFLECTED T-WAVE] ABNORMAL RHYTHM ECG Compared to ECG 11/15/2022 12:34:54 Sinus rhythm no longer present ST (T wave) deviation no longer present Electronically Signed On 08-13-2024 11:25:54 FLOOR REFINISHER by Porfirio Gay M.D. [email or web address]
[2024-08-13 02:00] VITALS: BP 122/87; PULSE 74; RESP 16; O2SAT 98
--- NOTE | 2024-08-13 02:06 | ED_ITS ---
HPI - Weakness 2 General: Chief complaint: Weakness Stated complaint: WEAKNESS Time Seen by Provider: 08/13/24 01:45 Source: patient and EMS Mode of arrival: EMS Limitations: no limitations History of Present Illness: 59-year-old female who states that over the last 3 weeks she has been having some generalized malaise and weakness. She has a history of COPD does wear liters oxygen at home. Patient denies any vomiting or diarrhea she denies any chest pain she denies any fevers or recent illness denies any cough Associated symptoms: Denies chest pain, chills, fever(s), headache(s), nausea or vomiting Review of Systems 2 Const: Reports: fatigue and malaise; Denies: fever(s), chills, body aches or change in appetite ENMT: Denies: throat pain or dental pain Card: Denies: chest pain Resp: Denies: dyspnea GI: Denies: abdominal pain, nausea, vomiting or diarrhea Musc: Denies: neck pain or back pain Skin/Breast: Denies: rash Neuro: Denies: headache(s) PFSH ED 2 PFSH: Medical History Insomnia Chronic obstructive pulmonary disease Sleep apnea 2021 sleep study showed moderate sleep apnea, recommended titration sleep study Essential hypertension Hyperlipemia, mixed Generalized epilepsy Urine incontinence Allergic rhinitis Lung mass PET negative Smoking heavy smoker Restrictive lung disease PVT (portal vein thrombosis) Sinus bradycardia Syncope Surgical History Pacemaker Medtronic dual-chamber Hx of breast reduction, elective History of tubal ligation History of cholecystectomy Family History Grandmother CAD (coronary artery disease) Cancer Diabetes Mother Cancer Brother Cancer Sister Cancer Denies family history of Hypertension Stroke Social History Smoking and tobacco/nicotine status: current every day tobacco/nicotine user cigarettes Packs smoked per day: 0.5 Years cigarettes smoked: 50 Second hand smoke exposure: No Alcohol intake: former Year of sobriety/quit date alcohol: 30 y Substance/Drug Use: unknown Adopted: No Caregiver/support person: No Lives independently: No Household members: caregiver Housing: House Marital status: Number of children: 1 service: No Current occupational status: unemployed Pets and animals: No Do you think of yourself as: Straight/Heterosexual Current gender identity: Female Physical Exam 2 Const: COMMON NORMALS: no acute distress, patient oriented x3 and healthy appearing HENMT: COMMON NORMALS: normocephalic and atraumatic HEAD & SCALP: n ormocephalic and atraumatic Eye: COMMON NORMALS: conjunctivae normal CONJUNCTIVA: Yes conjunctivae normal Neck/C-Spine: COMMON NORMALS: full ROM and supple Chest: COMMONS NORMALS: normal inspection of the chest Resp: COMMON NORMALS: No retractions, No use of accessory muscles and clear to auscultation bilaterally AUSCULTATION: clear to auscultation bilaterally Cardio: COMMON NORMALS: regular rate, regular rhythm and No murmurs present (Cardio) RATE: regular rate RHYTHM: regular rhythm GI: COMMON NORMALS: Normal to inspection, nondistended, normoactive bowel sounds present, Soft to palpation, non-tender and no masses PALPATION: Yes Soft to palpation Extremity: COMMON NORMALS: normal to inspection and full ROM Neuro: COMMON NORMALS: patient oriented x3, moves all extremities and no focal motor deficits Psych: COMMON NORMALS: mental status grossly normal, Normal thought process present and cooperative THOUGHT PROCESS: Normal thought process present Skin: COMMON NORMALS: no rashes or lesions noted and no wounds GENERAL SKIN EXAM: no rashes or lesions noted Course 2 Vital Signs: Vital signs: Vital Signs Temperature 98.3 F 08/13/24 01:49 Pulse Rate 63 08/13/24 05:00 Respiratory Rate 13 08/13/24 05:00 Blood Pressure 128/80 08/13/24 05:00 Pulse Oximetry 100 08/13/24 05:00 Oxygen Delivery Me thod Nasal Cannula 08/13/24 05:00 Oxygen Flow Rate 3 08/13/24 05:00 MDM - Weakness Medical Decision Making Patient presents for generalized weakness she has been well-appearing here with normal vitals she has no signs of pneumonia blood works normal she stable for discharge follow-up with PCP return if worsening. Medical Records I reviewed the patient's medical records. Lab Data I reviewed the patient's lab results. 08/13/24 02:23 08/13/24 02:43 Radiology Impressions Chest X-Ray 08/13/24 01:55 IMPRESSION: No acute findings. Chronic interstitial change. Laboratory Results WBC 7.73 10^3/uL (3.29-11.43) 08/13/24 02:23 RBC 4.31 10^6/uL (3.85-5.65) 08/13/24 02:23 Hgb 13.90 g/dL (11.27-16.99) 08/13/24 02:23 Hct 40.3 % (36-47) 08/13/24 02:23 MCV 93.5 fl (85-98) 08/13/24 02:23 MCH 32.3 pg (27-33) 08/13/24 02:23 MCHC 34.5 g/dL (30-55) 08/13/24 02:23 RDW 15.1 % (12.1-15.1) 08/13/24 02:23 Plt Count 590 10^3/cmm (157-399) H 08/13/24 02:23 MPV 11.2 fL (7.4-10.4) H 08/13/24 02:23 Neut % (Auto) 69.2 % 08/13/24 02:23 Lymph % (Auto) 21.6 % 08/13/24 02:23 [place] % (Auto) 7.5 % 08/13/24 02:23 Eos % (Auto) 0.6 % 08/13/24 02:23 Baso % (Auto) 0.3 % 08/13/24 02:23 Neut # (Auto) 5.35 10^3/uL (1.8-7.7) 08/13/24 02:23 Lymph # (Auto) 1.7 10^3/uL (0.8-4.8) 08/13/24 02:23 [place] # (Auto) 0.6 10^3/uL (0.2-0.9) 08/13/24 02:23 Eos # (Auto) 0.1 10^3/uL (0.0-0.8) 08/13/24 02:23 Baso # (Auto) 0.0 10^3/uL (0.0-0.1) 08/13/24 02:23 Nucleated RBC % (auto) 0.8 % 08/13/24 02:23 Nucleated RBCs # 0.1 /100WBC 08/13/24 02:23 PT 13.30 SECONDS (12.1-14.9) 08/13/24 02:23 INR 0.94 (0.8-1.2) 08/13/24 02:23 Sodium 138 mmol/L (136-145) 08/13/24 02:43 Potassium 4.2 mmol/L (3.5-5.1) 08/13/24 02:43 Chloride 102 mmol/L (98-107) 08/13/24 02:43 Carbon Dioxide 26 mmol/L (22-29) 08/13/24 02:43 Anion Gap 14.2 (5-19) 08/13/24 02:43 BUN 13 mg/dL (8-23) 08/13/24 02:43 Creatinine 1.0 mg/dL (0.5-0.9) H 08/13/24 02:43 GFR Calculation 56.4 mL/min (90-130) L 08/13/24 02:43 Glucose 106 mg/dL (65-115) 08/13/24 02:43 Calculated Osmolality 287 mOsm/kg (285-295) 08/13/24 02:43 Calcium 8.5 mg/dL (8.5-10.5) 08/13/24 02:43 Total Bilirubin 0.3 mg/dL (0.15-1.2) 08/13/24 02:43 AST 15 U/L (0-32) 08/13/24 02:43 ALT 12 U/L (0-33) 08/13/24 02:43 Alkaline Phosphatase 87 U/L (35-105) 08/13/24 02:43 Troponin T Baseline 15 ng/L (0-10) H 08/13/24 02:43 Troponin T 120 Minute 15.21 ng/L (0-10) H 08/13/24 04:45 Delta Troponin T 0.21 ABS# (0-10) 08/13/24 04:45 NT-Pro-B Natriuret Pep 421 pg/mL (0-125) H 08/13/24 02:43 Total Protein 7.4 g/dL (6.6-8.7) 08/13/24 02:43 Albumin 2.8 g/dL (3.5-5.2) L 08/13/24 02:43 Globulin 4.6 g/dL (1.3-4.6) 08/13/24 02:43 TSH 2.31 uIU/mL (0.27-4.20) 08/13/24 02:43 Urine Color Yellow (Yellow) 08/13/24 03:42 Urine Appearance Clear (CLEAR) 08/13/24 03:42 Urine pH 7.5 (5-7) 08/13/24 03:42 Ur Specific [place] 1.021 (1.005-1.030) 08/13/24 03:42 Urine Protein Trace (Negative) A 08/13/24 03:42 Urine Glucose (UA) Negative (Normal) 08/13/24 03:42 Urine Ketones Trace (Negative) 08/13/24 03:42 Urine Blood Negative (Negative) 08/13/24 03:42 Urine Nitrate Negative (Negative) 08/13/24 03:42 Urine Bilirubin Negative (Negative) 08/13/24 03:42 Urine Urobilinogen 1.0 mg/dL (Negative) 08/13/24 03:42 Ur Leukocyte Esterase Trace (Negative) A 08/13/24 03:42 Urine RBC 6-10 /hpf (0-2) 08/13/24 03:42 Urine WBC 0-5 /hpf (0-5) 08/13/24 03:42 Ur Squamous Epith Cells 0-5 /hpf (0-5) 08/13/24 03:42 Amorphous Sediment Not Reportable 08/13/24 03:42 Urine Bacteria None seen /hpf (NONE) 08/13/24 03:42 Hyaline Casts 1.21 /lpf 08/13/24 03:42 Coronavirus (PCR) Negative (Negative) 08/13/24 02:23 Influenza A (PCR) Negative (Negative) 08/13/24 02:23 Influenza Type B (PCR) Negative (Negative) 08/13/24 02:23 RSV (PCR) Negative (Negative) 08/13/24 02:23 All radiology interpretation(s) finalized by discharge EKG Data EKG 1: I personally reviewed and interpreted this EKG as follows: EKG interpretation date: 08/13/24 EKG interpretation time: 01:57 Interpretation: paced hr 65 no stemi early repol qrs 80 qtc 396 Discharge Plan Discharge Patient Disposition: Home Clinical Impression: Generalized weakness Condition: Stable Prescriptions: No Action pyridostigmine bromide [Mestinon] 60 mg tablet 30 mg PO TID Qty: 90 3RF albuterol sulfate 90 mcg/actuation HFA aerosol inhaler 2 puff inhalation Q6H PRN (Reason: shortness of breath or wheezing) Qty: 8.5 3RF citalopram 20 mg tablet See Rx Instructions .ROUTE .COMPLEX Qty: 90 3RF Dose Instruction: TAKE ONE TABLET BY MOUTH DAILY Rx Instructions: TAKE ONE TABLET BY MOUTH DAILY tizanidine 2 mg tablet See Rx Instructions .ROUTE .COMPLEX Qty: 90 11RF Dose Instruction: TAKE ONE TABLET BY MOUTH IN THE MORNING AND TAKE TWO TABLETS IN THE EVENING Rx Instructions: TAKE ONE TABLET BY MOUTH IN THE MORNING AND TAKE TWO TABLETS IN THE EVENING oxybutynin chloride 10 mg tablet extended release 24hr See Rx Instructions .ROUTE .COMPLEX Qty: 90 3RF Dose Instruction: TAKE ONE TABLET BY MOUTH DAILY Rx Instructions: TAKE ONE TABLET BY MOUTH DAILY budesonide-formoterol [Symbicort] 160-4.5 mcg/actuation HFA aerosol inhaler See Rx Instructions .ROUTE .COMPLEX Qty: 10.2 11RF Dose Instruction: INHALE 2 PUFFS INTO LUNGS TWICE DAILY Rx Instructions: INHALE 2 PUFFS INTO LUNGS TWICE DAILY gabapentin 300 mg capsule 300 mg PO TID Qty: 90 11RF montelukast 10 mg tablet 10 mg PO QPM Qty: 90 3RF pravastatin 80 mg tablet 80 mg PO BEDTIME Qty: 90 3RF eszopiclone [Lunesta] 3 mg tablet 1.5 mg PO .QHS Qty: 15 0RF aspirin [Adult Aspirin Regimen] 81 mg tablet,delayed release (DR/EC) 81 mg PO DAILY (DME) DME: CANE See Rx Instructions .Route .MEDSUPPLY Qty: 1 0RF Rx Instructions: As directed amoxicillin 875 mg tablet 875 mg PO Q12H 21 Days Qty: 42 0RF doxycycline monohydrate 100 mg tablet 100 mg PO BID 21 Days Qty: 42 0RF nitroglycerin [Nitrostat] 0.4 mg Tablet, Sublingual 0.4 mg SUBLINGUAL Q5M PRN (Reason: Chest Pain) Rx Instructions: do not exceed 3 doses per episode Discharge Orders: Discharge ED (Routine); Ordered 08/13/24 Ordered By: Quinn Mcmahon Referrals: Gil Cisneros STRATEGY ANALYST [Primary Care Provider] - 4-7 days Discharge Diet: Advance as tolerated Discharge Activity: Resume usual activity Patient Instructions: Weakness (ED) Print Language: Sinhala Coding Level of Care Code ED 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 Operator for Chg Fwd Related Data Home Medications ?Medication ?Instructions ?Recorded ?Confirmed nitroglycerin 0.4 mg sublingual 0.4 mg sublingual Q5M PRN Chest 09/22/22 07/12/24 tablet (Nitrostat) Pain aspirin 81 mg tablet,delayed 81 mg PO DAILY 03/22/23 0 07/12/24 release (Adult Aspirin Regimen) Previous Rx's ?Medication ?Instructions ?Recorded albuterol sulfate 90 mcg/actuation 2 puff inhalation Q 6H PRN 01/26/24 aerosol inhaler shortness of breath or wheez ing #8.5 grams pyridostigmine bromide 60 mg 30 mg (1/2 x 60 mg) PO TI D #90 tabs 01/26/24 tablet (Mestinon) DME: CANE #1 ea 04/18/24 budesonide-formoterol HFA 160 See Rx Instructions .Rou te 06/14/24 mcg-4.5 mcg/actuation aerosol .COMPLEX #10.2 grams inhaler (Symbicort) citalopram 20 mg tablet See Rx Instructions .Route 1 08/15/23 .COMPLEX #90 tabs gabapentin 300 mg capsule 300 mg PO TID #90 caps 06/14 montelukast 10 mg tablet 10 mg PO QPM #90 tabs oxybutynin chloride 10 mg See Rx Instructions .Route 1 08/15/23 tablet,extended release 24 hr .COMPLEX #90 tabs pravastatin 80 mg tablet 80 mg PO BEDTIME #90 tabs tizanidine 2 mg tablet See Rx Instructions .Route 1 08/15/23 .COMPLEX #90 tabs amoxicillin 875 mg tablet 875 mg PO Q12H 3 weeks #42 t abs 07/12/24 doxycycline monohydrate 100 mg 100 mg PO BID 3 weeks # 42 tabs 07/12/24 tablet eszopiclone 3 mg tablet (Lunesta) 1.5 mg (1/2 x 3 mg) PO .QHS #15 07/12/24 tabs Allergies Allergy/AdvReac Type Severity Reaction Status Date / Time Sulfa (Sulfonamide Allergy Mild Unknown Verified 08/13/24 01:50 Antibiotics) Iodinated Contrast Media Allergy ADR-Itching Verified 08/13/24 01:50
[2024-08-13 02:28] LABS: Basophils % 0.3 %; Eosinophils # 0.1 10^3/uL (0.0-0.8); Eosinophils % 0.6 %; Hematocrit 40.3 % (36-47); Lymphocytes # 1.7 10^3/uL (0.8-4.8); Lymphocytes % 21.6 %; Mean Corpuscular HGB Conc 34.5 g/dL (30-55); Mean Corpuscular Hemoglobin 32.3 pg (27-33); Mean Corpuscular Volume 93.5 fl (85-98); Mean Platelet Volume 11.2 fL (7.4-10.4); Monocytes # 0.6 10^3/uL (0.2-0.9); Monocytes % 7.5 %; Neutrophils # 5.35 10^3/uL (1.8-7.7); Neutrophils % 69.2 %; Nucleated Red Blood Cells # 0.1 /100WBC; Nucleated Red Blood Cells % 0.8 %; Platelet Count 590 10^3/cmm (157-399); Red Blood Count 4.31 10^6/uL (3.85-5.65); Red Cell Distribution Width 15.1 % (12.1-15.1); White Blood Count 7.73 10^3/uL (3.29-11.43)
[2024-08-13 02:44] LABS: INR 0.94 (0.8-1.2)
[2024-08-13 03:09] LABS: Influenza A NEGATIVE (Negative); Influenza B NEGATIVE (Negative); Respiratory Syncytial Virus Ce NEGATIVE (Negative); SARS-CoV-2 PCR NEGATIVE (Negative)
[2024-08-13 03:12] LABS: Troponin(5th) Baseline 15 ng/L (0-10)
[2024-08-13 03:18] LABS: Alanine Aminotransferase 12 U/L (0-33); Albumin Level 2.8 g/dL (3.5-5.2); Alkaline Phosphatase 87 U/L (35-105); Anion Gap 14.2 (5-19); Aspartate Amino Transferase 15 U/L (0-32); Blood Urea Nitrogen 13 mg/dL (8-23); Calcium 8.5 mg/dL (8.5-10.5); Carbon Dioxide 26 mmol/L (22-29); Chloride 102 mmol/L (98-107); Creatinine Clr Calc Pharmacy 54.1968; Globulin 4.6 g/dL (1.3-4.6); Glomerular Filtration Rate 56.4 mL/min (90-130); Glucose 106 mg/dL (65-115); NT Pro B Type Natriuretic Pept 421 pg/mL (0-125); Osmolality Calculated 287 mOsm/kg (285-295); Potassium 4.2 mmol/L (3.5-5.1); Sodium 138 mmol/L (136-145); Thyroid Stimulating Hormone 2.31 uIU/mL (0.27-4.20); Total Bilirubin 0.3 mg/dL (0.15-1.2); Total Protein 7.4 g/dL (6.6-8.7)
[2024-08-13 03:48] LABS: Bilirubin Urine Negative (Negative); Blood Urine Negative (Negative); Glucose Urine UA Negative (Normal); Ketones Urine Trace (Negative); Leukocyte Esterase Urine Trace (Negative); Nitrate Urine Negative (Negative); Protein Urine Trace (Negative); Specific Gravity, Urine 1.021 (1.005-1.030); Urine Appearance Clear (CLEAR); Urine Color Yellow (Yellow); pH Urine 7.5 (5-7)
[2024-08-13 03:52] LABS: Add Urine Microscopic? YES; Bacteria Urine None Seen /hpf; Hyaline Casts Urine 1.21 /lpf; Squamous Epithelial Cell Urine 0-5 /hpf (0-5); WBC Urine 0-5 /hpf (0-5)
[2024-08-13 05:00] VITALS: BP 128/80; PULSE 63; RESP 13; O2SAT 100
[2024-08-13 05:11] LABS: Troponin 5 2HR 15.21 ng/L (0-10); Troponin 5 2HR Delta 0.21 ABS# (0-10)
[2024-08-13 06:01] VITALS: BP 155/79; PULSE 60; O2SAT 100
== END 2024-08-13 06:02 | disposition home or self-care (01) ==
PROVIDERS: Emergency Provider Emergency Medicine; PCP Clinical Nurse Specialist Adult Health
DX: R53.1 Weakness (principal); Z11.52 Encounter for screening for COVID-19; Z79.82 Long term (current) use of aspirin; F17.210 Nicotine dependence, cigarettes, uncomplicated; E78.2 Mixed hyperlipidemia; I10 Essential (primary) hypertension
CPT/HCPCS: 36415; 71045; 80053; 81001; 83880; 84443; 84484; 85025; 85610; 87637; 93005; 99285

== ENCOUNTER → 2024-09-19 10:18 | Outpatient (BNVA) | payer MEDICAID, SELFPAY | PROVIDERS: PCP Clinical Nurse Specialist Adult Health; Visit Provider Internal Medicine | DX: Z45.018 Encounter for adjustment and management of other part of cardiac pacemaker (principal) | CPT/HCPCS: 93296 ==

== ENCOUNTER 2024-09-20 14:41 | Outpatient (CLI) | payer MEDICAID, SELFPAY ==
--- NOTE | 2024-09-20 15:00 | US_ITS ---
WS: [id number] ULTRASOUND BREAST LEFT TECHNIQUE: Ultrasound left breast focused area of concern. CLINICAL INFORMATION: N61.1 - Abscess of the breast and nipple COMPARISON: 07/12/2024 FINDINGS: Previously described eccentric abscess at the nipple 12 to 1 o'clock position has improved compared to previous with residual subcutaneous complex fluid/abscess measuring 3.1 x 0.5. This has improved approximately 50% with residual shallow collection. No other suspicious findings. Recommend interval follow-up ultrasound in 4 to 6 weeks to ensure continuing resolution. US/US breast LT limited* [id number] IMPRESSION: BI-RADS 3 probably benign Follow-up: See report
== END 2024-09-20 14:42 | disposition home or self-care (01) ==
PROVIDERS: PCP Clinical Nurse Specialist Adult Health; Visit Provider Clinical Nurse Specialist Adult Health
DX: N61.1 Abscess of the breast and nipple (principal); N63.42 Unspecified lump in left breast, subareolar; N61.0 Mastitis without abscess
CPT/HCPCS: 76642

== ENCOUNTER 2024-12-25 20:00 | Outpatient (CLI) | payer MEDICAID, SELFPAY | END 2024-12-25 20:01 | disposition home or self-care (01) | LOC: SLEEP 23:54 | PROVIDERS: PCP Clinical Nurse Specialist Adult Health; Referring Provider Clinical Nurse Specialist Adult Health; Visit Provider Internal Medicine Pulmonary Disease | DX: G47.33 Obstructive sleep apnea (adult) (pediatric) (principal) | CPT/HCPCS: 95811 ==

== ENCOUNTER → 2025-05-29 10:51 | Outpatient (BNVA) | payer MEDICAID, SELFPAY | PROVIDERS: PCP Clinical Nurse Specialist Adult Health; Visit Provider Internal Medicine | DX: Z45.018 Encounter for adjustment and management of other part of cardiac pacemaker (principal) | CPT/HCPCS: 93296 ==